=== PATIENT | female | born 1965 | race Caucasian/White ===

== ENCOUNTER 2024-07-02 09:00 | Outpatient (RCR) | payer OTHER, SELFPAY ==
--- NOTE | 2024-06-30 15:57 | PT.OIE ---
Current Diagnoses Unilateral primary osteoarthritis, left knee (06/30/24) Patellofemoral disorders, right knee (06/30/24) Patellofemoral disorders, left knee (06/30/24) Stiffness of right knee, not elsewhere classified (06/30/24) Stiffness of left knee, not elsewhere classified (06/30/24) Other specified disorders of muscle (06/30/24) Iliotibial band syndrome, left leg (06/30/24) Other lack of coordination (06/30/24) Weakness (06/30/24) Past Medical History (Last Updated 01/09/24 @ 17:06 by Monie Armstrong MD) Hypothyroidism Tinnitus Past Surgical History (Last Updated 01/09/24 @ 17:06 by Monie Armstrong MD) H/O gastric sleeve Visit Care Team Role Provider Type Monie Armstrong MD Family Provider Physician Primary Care Provider Specialty: Family Practice INFECTION PREVENTION PRACTITIONER Address: [address] [place] [address], [phone] Fax: Email: [email or web address] Jordan Camacho MD Attending Provider Non-Staff Referring Provider Specialty: Orthopedic Surgery Address: [facility] [place], [address] Email: Physical Therapy Initial Evaluation PT-OP-A Visit Information Start: 06/27/24 16:41 Freq: Status: Active Protocol: Document 06/30/24 10:44 NM (Rec: 06/30/24 11:33 NM [id number]) Out-Patient Physical Therapy Visit Information Visit Information Visit Type Initial Evaluation Visit Start Time 10:48 Visit Stop Time 11:30 Visit Number 1 Evaluation Information Evaluation Date 06/30/24 Precautions Precautions Hx L ACL repair, B knee OA PT-OP-B Current Condition Start: 06/27/24 16:41 Freq: Status: Active Protocol: Document 06/30/24 10:44 NM (Rec: 06/30/24 11:33 NM [id number]) Current Condition History of Current Condition Onset Date past several months Current Complaints pain History of Current Condition Pt presents with B knee pain, L>R. She has swelling in BLE. Pt just moved to area in October . She reports that she has been hiking multiple times per week (2-4x/wk). She has had L knee pain off and on. She had hx of L ACL repair, reports never really returned to normal (2012); injured when a kid jumped on pt. Pain is worse with hiking (1 mi if elevated, 1.5 mi if flat), bending knee, sitting for long periods, squatting, stairs. She started PT at a different place and has been doing exercises (s/l hip abd, prone hip ext, SLR, stretches- which has helped)- helped pain but not resolved. Reports weakness in her legs, tender ITB. She does reports that she felt a pop/tear on lateral knee when hiking this summer, sharp for several minutes but resolved with sitting; periodically has feelings feels like her tibia goes the outside. Prior Treatments and Tests Pt has had x rays in both knees, reports mild arthritis Treatment Goals Patient/Caregiver Goals wants to be able to transfer from floor to standing ( ultimate goal), transfer from chair PT-OP-C Subjective Start: 06/27/24 16:41 Freq: Status: Active Protocol: Document 06/30/24 10:44 NM (Rec: 06/30/24 11:33 NM [id number]) OP-PT Subjective Patient Comments Patient Comments Pt consents to participate in PT evaluation Patient Questionnaires Lower Extremity Functional Scale LEFS Score 60/80 OP-PT Pain Assessment Location R knee Pain Location Details below patella Intensity 4 Scale Used Numeric (0 - 10) Description Aching,Dull Pain Aggravating Factors Standing,Sitting,Walking,Stair Climbing,Bending Other Pain Aggravating Factors squatting; 2 mi limit Pain Alleviating Factors Rest Other Pain Alleviating Factors no medicatinos L knee Pain Location Details subpatellar, under patella Intensity 4 Scale Used Numeric (0 - 10) Description Aching,Dull Variations/Patterns sweling medial and below knee Pain Aggravating Factors Exercise,Standing,Sitting, Walking,Stair Climbing,Bending Other Pain Aggravating Factors squatting; 2 mi limit Pain Alleviating Factors Rest Other Pain Alleviating Factors no medications PT-OP-D Balance Start: 06/27/24 16:41 Freq: Status: Active Protocol: Document 06/30/24 10:44 NM (Rec: 06/30/24 11:33 NM [id number]) Balance Tests Single Limb Standing Single Limb- Right 10 sec Single Limb- Left 8 sec- inc instab; challenging PT-OP-E Functional Tests Start: 06/27/24 16:41 Freq: Status: Active Protocol: Document 06/30/24 10:44 NM (Rec: 06/30/24 11:33 NM [id number]) Functional Tests Squat Test Score 2 Comments crepitus; tendency for hip rot , WB R>L, less knee flex PT-OP-F Manual Assessment Start: 06/27/24 16:41 Freq: Status: Active Protocol: Document 06/30/24 10:44 NM (Rec: 06/30/24 11:33 NM [id number]) Manual Assessments Soft Tissue Assessment Soft Tissue Mobility Assessment L: tightness and tenderness along ITB, TFL, quad, ankle R: tightness, minimal tenderness along ITB Joint Mobility Assessment Joint Mobility Assessment Crepitus B. Limited patellar mobility L>R especially medial -lateral. L knee painful with passive overpressure into ext and flex, none on R knee. hyperextension of B knees. No ligamentous laxity noted Demos several + findings on beighton score Other Manual Assessments Other Manual Assessments Beighton scale: 5/8 PT-OP-G Mobility & Gait Start: 06/27/24 16:41 Freq: Status: Active Protocol: Document 06/30/24 10:44 NM (Rec: 06/30/24 12:55 NM [id number]) OP Mobility Evaluation Transfers Sit to Stand demos tendency to shift weight onto RLE when attempting to stand OP Gait Assessment Comments Gait Comments quick heel off, less dorsiflexion on L side than R, slightly antalgic w/ L stance Stair Climbing Evaluation Comments Stair Climbing Comments 4 step down: demos strong valgus B, L>R, in addition to unsteadiness at L ankle. Pain in knee w/ eccentric lowering PT-OP-J Posture/Palpation/Skin Start: 06/27/24 16:41 Freq: Status: Active Protocol: Document 06/30/24 10:44 NM (Rec: 06/30/24 11:33 NM [id number]) Palpation Assessment Location R knee Palpation Findings Edema,Tenderness Palpation Details Mild tenderness just inferior to patella, medial knee, near ITB insertion and along distal ITB L knee Palpation Findings Edema Palpation Details Tenderness noted along insertion of and distal ITB, lateral knee near fibular head and to tibia, none along joint line, inferior to patella Tightness along lateral hip and quad Skin Assessment Circumference Measurement R knee Location 44 cm at patella, 41 cm at mid calf L knee Location 46 cm at patella, 41 cm at mid calf Other Assessments Skin Assessment Comments 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 as non- pitting and stops just above foot/ankle joint; however, sock leaves indention in BLE PT-OP-K Range of Motion Start: 06/27/24 16:41 Freq: Status: Active Protocol: Document 06/30/24 10:44 NM (Rec: 06/30/24 11:33 NM [id number]) Hip Goniometric Range of Motion Hip Right Internal Rotation 25 External Rotation 25 Left Internal Rotation 20 External Rotation 25 Knee Goniometric Range of Motion Knee Right Flexion Active (degrees) 135 Hyper-Extension Active 4 Left Flexion Active (degrees) 125 Flexion Passive (degrees) 130 Hyper-Extension Active 1 Comments pain with full ext and flex, passive flex/ext PT-OP-L Special Tests Start: 06/27/24 16:41 Freq: Status: Active Protocol: Document 06/30/24 10:44 NM (Rec: 06/30/24 11:33 NM [id number]) Special Tests Knee Special Tests Ab's Test Test Results + Malone's Compression Test Results + Jerson Test Test Results - Posterior Sag Test Results - Shelia's Test Results - Varus Test Results - Valgus Test Results - PT-OP-M Strength Start: 06/27/24 16:41 Freq: Status: Active Protocol: Document 06/30/24 10:44 NM (Rec: 06/30/24 11:33 NM [id number]) Hip Strength Hip Manual Muscle Testing Right Flexion (L2) 4- Good- Extension (S1) 4- Good- Abduction 4- Good- External Rotation 4- Good- Internal Rotation 4- Good- Left Flexion (L2) 4 Good Extension (S1) 4- Good- Abduction 4 Good External Rotation 4- Good- Internal Rotation 4- Good- Knee Strength Knee Manual Muscle Testing Right Flexion (S2) 4 Good Extension (L3) 4 Good Left Flexion (S2) 4 Good Extension (L3) 4 Good Ankle/Foot Strength Ankle and Foot Manual Muscle Testing Right Dorsiflexion (L4) 4+ Good+ Plantarflexion (S1) 4+ Good+ Left Dorsiflexion (L4) 4+ Good+ Plantarflexion (S1) 4+ Good+ PT-OP-Q Treatments Start: 06/27/24 16:41 Freq: Status: Active Protocol: Document 06/30/24 10:44 NM (Rec: 06/30/24 11:33 NM [id number]) Therapeutic Exercises Supine Exercises bridge Side bilateral Resistance level 2 band Reps/Minutes 2x15 bilateral bridge, no pain with knee flex, maintains stability Comments trialed SL bridge but challenging in pt clothing; will assess next session Standing Exercises resisted stepping Standing Exercise Name lateral stepping Side bilateral Resistance level 2 band at thighs > ankles Reps/Minutes 3x15 ft Comments slight squat stance; cued for smaller step to limit trunk lean Self-Care/Home Management Treatment Education Patient Education Pain Management Other Education Educated briefly on lymphedema vs lipedema, strong recommendation for updated referral to lymphedema specialist following this episode of care PT-OP-T Assessment and Plan Start: 06/27/24 16:41 Freq: Status: Active Protocol: Document 06/30/24 10:44 NM (Rec: 06/30/24 11:33 NM [id number]) Physical Therapy Assessment Rehab Potential Rehabilitation Potential Good Evaluation Complexity Number of Personal Factors/Comorbidities 1-2 Number of Body Systems Impaired 1-2 Clinical Presentation at Evaluation Stable Impairments Impairments Activity Tolerance,Balance, Edema,Functional Activities, Functional Mobility,Gait, Integument,Pain,Posture,ROM, Sensation,Soft Tissue Mobility ,Strength,Transfers Other Concerns Age Related Concerns PMH: L ACL repair 2012, thyroid disorder, bariatric surgery several years ago Barriers to Rehabilitation Pt reports largely sedentary other than hikes, prior to moving to area reports that was very sedentary, not performing any other strengthening. Quit last PT for same condition as did not feel like was moving in the direction that I wanted it to . Goals Four Impairment LEFS 60/80, hiking 2-4x/wk Circulation Crew Leader Goal (LTG) Pt will report <4/10 knee pain with hiking at least 1 mile on any surface to demo improved activity tolerance LTG Duration 12 weeks Three Impairment squatting difficult and painful Short Term Goal (STG) Pt will be able to perform 100 % of STS transfers from standard chair with equal WB and knee pain <3/10 STG Duration 6 weeks [employer] Leader Goal (LTG) Pt will be able to perform at least 10 B squats with equal weightbearing, minimal compensations, and knee pain < 3/10 to perform transfers LTG Duration 12 weeks Two Impairment pain with stairs and hills Short Term Goal (STG) Pt will report <4/10 pain in B knees with eccentric step down with or without hand support and minimal compensations to demo improved control during descent STG Duration 8 weeks Mcfp Goal (LTG) Pt will report pain <3/10 in B knees during at least 12 stairs (1 flight) LTG Duration 12 weeks One Impairment not performing HEP Circulation Crew Leader Goal (LTG) Pt will report compliance with HEP at least 3x/wk in order to maximize progression with PT and maintain progress upon discharge LTG Duration 12 weeks Assessment Summary Assessment Pt is a 58 y.o. presenting with chronic B knee pain, L>R, worsening after an increase in activity. Pt has limitations in L knee flexion ROM, demos hyperextension on BLE. Pt has limitations in hip mobility and B hip and knee strength. She demos difficulty with STS transfers and squatting, with audible crepitus and deviations with hip rotation and less weightbearing on L side. Pt demos knee valgus with eccentric step down, unsteadiness at her ankle, and poor control. Pt has swelling in BLE, possibly lipedema vs lymphedema as non-pitting and terminates at her ankle; has hx of bariatric surgery and weight loss, which may impact her ability to improve ROM. Pt also has a hx of L ACL repair and sedentary lifestyle, which may impact rehab. PT educated pt on exam findings and plan of care. Pt would benefit from skilled PT for progressive flexibility and strengthening in order to improve symptom management during ADLs/IADLs, hiking, and stairs. Physical Therapy Plan Frequency and Duration Frequency of Treatment 1-2x/wk Duration of treatment (weeks) 12 Plan of Care Start Date 06/30/24 Plan of Care End Date 09/26/24 Therapeutic Interventions Therapeutic Interventions Balance Training,Gait Training ,Home Exercise Program,Joint Mobilizations,Manual Therapy, Neuromuscular Re-education, Orthotic/Prosthetic Management ,Patient/Caregiver Education, Self-Care/Home Management, Sensory Integration,Soft Tissue Mobilization,Taping, Therapeutic Activities, Therapeutic Exercises Modalities Cold Pack/Ice Massage,Electric Stimulation,Hot Packs, Ultrasound Next Visit Focus/Plan Next Note Type Treatment Note Next Visit Plan side steps, slider w/ band multi direction, squat retraining, quad stretch, calf stretch, TFL stretch, single leg bridge, TKE with band progress to stairs, leg press, squats at wall vs open chain manual: to hip/knee, ROM and STM
--- NOTE | 2024-07-02 09:49 | PT.OTN ---
Current Diagnoses Unilateral primary osteoarthritis, left knee (07/02/24) Patellofemoral disorders, right knee (07/02/24) Patellofemoral disorders, left knee (07/02/24) Stiffness of right knee, not elsewhere classified (07/02/24) Stiffness of left knee, not elsewhere classified (07/02/24) Other specified disorders of muscle (07/02/24) Iliotibial band syndrome, left leg (07/02/24) Other lack of coordination (07/02/24) Weakness (07/02/24) Physical Therapy Treatment Note PT-OP-A Visit Information Start: 06/27/24 16:41 Freq: Status: Active Protocol: Document 07/02/24 09:03 NM (Rec: 07/02/24 09:49 NM [id number]) Out-Patient Physical Therapy Visit Information Visit Information Visit Type Treatment Note Visit Start Time 09:03 Visit Stop Time 09:45 Visit Number 2 Evaluation Information Evaluation Date 06/30/24 Precautions Precautions Hx L ACL repair, B knee OA PT-OP-B Current Condition Start: 06/27/24 16:41 Freq: Status: Active Protocol: Document 06/30/24 10:44 NM (Rec: 06/30/24 11:33 NM [id number]) Current Condition History of Current Condition Onset Date past several months Current Complaints pain History of Current Condition Pt presents with B knee pain, L>R. She has swelling in BLE. Pt just moved to area in October . She reports that she has been hiking multiple times per week (2-4x/wk). She has had L knee pain off and on. She had hx of L ACL repair, reports never really returned to normal (2012); injured when a kid jumped on pt. Pain is worse with hiking (1 mi if elevated, 1.5 mi if flat), bending knee, sitting for long periods, squatting, stairs. She started PT at a different place and has been doing exercises (s/l hip abd, prone hip ext, SLR, stretches- which has helped)- helped pain but not resolved. Reports weakness in her legs, tender ITB. She does reports that she felt a pop/tear on lateral knee when hiking this summer, sharp for several minutes but resolved with sitting; periodically has feelings feels like her tibia goes the outside. Prior Treatments and Tests Pt has had x rays in both knees, reports mild arthritis Treatment Goals Patient/Caregiver Goals wants to be able to transfer from floor to standing ( ultimate goal), transfer from chair PT-OP-C Subjective Start: 06/27/24 16:41 Freq: Status: Active Protocol: Document 07/02/24 09:03 NM (Rec: 07/02/24 09:49 NM [id number]) OP-PT Subjective Patient Comments Patient Comments Pt reports no soreness following evaluation, no knee pain. PT-OP-D Balance Start: 06/27/24 16:41 Freq: Status: Active Protocol: Document 06/30/24 10:44 NM (Rec: 06/30/24 11:33 NM [id number]) Balance Tests Single Limb Standing Single Limb- Right 10 sec Single Limb- Left 8 sec- inc instab; challenging PT-OP-E Functional Tests Start: 06/27/24 16:41 Freq: Status: Active Protocol: Document 06/30/24 10:44 NM (Rec: 06/30/24 11:33 NM [id number]) Functional Tests Squat Test Score 2 Comments crepitus; tendency for hip rot , WB R>L, less knee flex PT-OP-F Manual Assessment Start: 06/27/24 16:41 Freq: Status: Active Protocol: Document 06/30/24 10:44 NM (Rec: 06/30/24 11:33 NM [id number]) Manual Assessments Soft Tissue Assessment Soft Tissue Mobility Assessment L: tightness and tenderness along ITB, TFL, quad, ankle R: tightness, minimal tenderness along ITB Joint Mobility Assessment Joint Mobility Assessment Crepitus B. Limited patellar mobility L>R especially medial -lateral. L knee painful with passive overpressure into ext and flex, none on R knee. hyperextension of B knees. No ligamentous laxity noted Demos several + findings on beighton score Other Manual Assessments Other Manual Assessments Beighton scale: 5/8 PT-OP-G Mobility & Gait Start: 06/27/24 16:41 Freq: Status: Active Protocol: Document 06/30/24 10:44 NM (Rec: 06/30/24 12:55 NM [id number]) OP Mobility Evaluation Transfers Sit to Stand demos tendency to shift weight onto RLE when attempting to stand OP Gait Assessment Comments Gait Comments quick heel off, less dorsiflexion on L side than R, slightly antalgic w/ L stance Stair Climbing Evaluation Comments Stair Climbing Comments 4 step down: demos strong valgus B, L>R, in addition to unsteadiness at L ankle. Pain in knee w/ eccentric lowering PT-OP-J Posture/Palpation/Skin Start: 06/27/24 16:41 Freq: Status: Active Protocol: Document 06/30/24 10:44 NM (Rec: 06/30/24 11:33 NM [id number]) Palpation Assessment Location R knee Palpation Findings Edema,Tenderness Palpation Details Mild tenderness just inferior to patella, medial knee, near ITB insertion and along distal ITB L knee Palpation Findings Edema Palpation Details Tenderness noted along insertion of and distal ITB, lateral knee near fibular head and to tibia, none along joint line, inferior to patella Tightness along lateral hip and quad Skin Assessment Circumference Measurement R knee Location 44 cm at patella, 41 cm at mid calf L knee Location 46 cm at patella, 41 cm at mid calf Other Assessments Skin Assessment Comments 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 as non- pitting and stops just above foot/ankle joint; however, sock leaves indention in BLE PT-OP-K Range of Motion Start: 06/27/24 16:41 Freq: Status: Active Protocol: Document 06/30/24 10:44 NM (Rec: 06/30/24 11:33 NM [id number]) Hip Goniometric Range of Motion Hip Right Internal Rotation 25 External Rotation 25 Left Internal Rotation 20 External Rotation 25 Knee Goniometric Range of Motion Knee Right Flexion Active (degrees) 135 Hyper-Extension Active 4 Left Flexion Active (degrees) 125 Flexion Passive (degrees) 130 Hyper-Extension Active 1 Comments pain with full ext and flex, passive flex/ext PT-OP-L Special Tests Start: 06/27/24 16:41 Freq: Status: Active Protocol: Document 06/30/24 10:44 NM (Rec: 06/30/24 11:33 NM [id number]) Special Tests Knee Special Tests Ab's Test Test Results + Malone's Compression Test Results + Jerson Test Test Results - Posterior Sag Test Results - Shelia's Test Results - Varus Test Results - Valgus Test Results - PT-OP-M Strength Start: 06/27/24 16:41 Freq: Status: Active Protocol: Document 06/30/24 10:44 NM (Rec: 06/30/24 11:33 NM [id number]) Hip Strength Hip Manual Muscle Testing Right Flexion (L2) 4- Good- Extension (S1) 4- Good- Abduction 4- Good- External Rotation 4- Good- Internal Rotation 4- Good- Left Flexion (L2) 4 Good Extension (S1) 4- Good- Abduction 4 Good External Rotation 4- Good- Internal Rotation 4- Good- Knee Strength Knee Manual Muscle Testing Right Flexion (S2) 4 Good Extension (L3) 4 Good Left Flexion (S2) 4 Good Extension (L3) 4 Good Ankle/Foot Strength Ankle and Foot Manual Muscle Testing Right Dorsiflexion (L4) 4+ Good+ Plantarflexion (S1) 4+ Good+ Left Dorsiflexion (L4) 4+ Good+ Plantarflexion (S1) 4+ Good+ PT-OP-Q Treatments Start: 06/27/24 16:41 Freq: Status: Active Protocol: Document 07/02/24 09:03 NM (Rec: 07/02/24 09:49 NM [id number]) Therapeutic Exercises Supine Exercises single leg bridge Side bilateral Equipment Used with ppt Reps/Minutes 2x10 ea Comments cueing for execution TFL stretch Supine Exercise Name with strap Side bilateral Reps/Minutes 60 Comments cued to loosen strap slightly for less calf lianne stretch Supine Exercise Name with slight knee flex/ext Side bilateral Reps/Minutes 60 Comments L side tighter Sidelying Exercises quad stretch Side bilateral Equipment Used with strap Reps/Minutes 60 ea Standing Exercises single leg heel raise Side bilateral Equipment Used hand support at wall Reps/Minutes 2x15 Comments L side more challenging wall squat Standing Exercise Name isometric hold Side bilateral Equipment Used small ROM to avoid knee pain Reps/Minutes 2x20 Comments increase in knee pain w/ reps calf stretch Standing Exercise Name 1. gastrocnemius, 2. soleus Side bilateral Equipment Used staggered stance at wall Reps/Minutes 60 ea Comments less stretch with soleus resisted stepping Standing Exercise Name lateral stepping Side bilateral Resistance level 2 band at toes Reps/Minutes 2x25 ft Comments more challenging; good feedback for glute activation Manual Therapy Treatment Consent Patient gave verbal consent for manual Yes treatment Soft Tissue Mobilization R knee Body Location quad, HS, TFL, ITB Mobilization Type Rolling,Strumming,Sustained Pressure Intensity/Depth Moderate Body Position Hooklying Comments Tenderness at calf L knee Body Location quad, HS, TFL, ITB, calf Mobilization Type Oscillations,Strumming, Sustained Pressure Intensity/Depth Moderate Body Position Hooklying Comments Tenderness along ITB and quad, TFL. Reduced with soft tissue mobilization Joint Mobilizations R knee Joint patellar Direction sup/inf/med/lat Grade III Body Position Supine Reps/Duration 2x30 ea Comments Monitored for pain L knee Joint patellar Direction sup/inf/med/lat Grade III Body Position Supine Reps/Duration 2x30 ea Comments Monitored for pain. Less mobility than R knee PT-OP-T Assessment and Plan Start: 06/27/24 16:41 Freq: Status: Active Protocol: Document 07/02/24 09:03 NM (Rec: 07/02/24 09:49 NM [id number]) Physical Therapy Assessment Goals Four Impairment LEFS 60/80, hiking 2-4x/wk [employer] Equipment [employer] Goal (LTG) Pt will report <4/10 knee pain with hiking at least 1 mile on any surface to demo improved activity tolerance LTG Duration 12 weeks Three Impairment squatting difficult and painful Short Term Goal (STG) Pt will be able to perform 100 % of STS transfers from standard chair with equal WB and knee pain <3/10 STG Duration 6 weeks [facility] Goal (LTG) Pt will be able to perform at least 10 B squats with equal weightbearing, minimal compensations, and knee pain < 3/10 to perform transfers LTG Duration 12 weeks Two Impairment pain with stairs and hills Short Term Goal (STG) Pt will report <4/10 pain in B knees with eccentric step down with or without hand support and minimal compensations to demo improved control during descent STG Duration 8 weeks [facility] Goal (LTG) Pt will report pain <3/10 in B knees during at least 12 stairs (1 flight) LTG Duration 12 weeks One Impairment not performing HEP Sports Equipment Racker Goal (LTG) Pt will report compliance with HEP at least 3x/wk in order to maximize progression with PT and maintain progress upon discharge LTG Duration 12 weeks Assessment Summary Assessment Pt tolerated session well, no pain during exercises or strengthening. Initiated global stretching program to improve flexibility above and below knee, specificially targeting TFL and hip flexors. More tightness on L side than R. Progressed to band at toes for resisted stepping, higher glute activation. Trialed single leg bridge. Minimal cues needed for form, L side more challenging. Less tolerance for wall squat isometric. Pt reports no pain at end of session in knees. She would conitnue to benefit from skilled PT for progressive strengthening and flexibility to improve symptom management and activity tolerance. Physical Therapy Plan Frequency and Duration Frequency of Treatment 1-2x/wk Duration of treatment (weeks) 12 Plan of Care Start Date 06/30/24 Plan of Care End Date 09/26/24 Therapeutic Interventions Therapeutic Interventions Balance Training,Gait Training ,Home Exercise Program,Joint Mobilizations,Manual Therapy, Neuromuscular Re-education, Orthotic/Prosthetic Management ,Patient/Caregiver Education, Self-Care/Home Management, Sensory Integration,Soft Tissue Mobilization,Taping, Therapeutic Activities, Therapeutic Exercises Modalities Cold Pack/Ice Massage,Electric Stimulation,Hot Packs, Ultrasound Next Visit Focus/Plan Next Note Type Treatment Note Next Visit Plan side steps, slider w/ band multi direction, squat retraining, quad stretch, calf stretch, TFL stretch, single leg bridge, TKE with band progress to stairs, leg press, squats at wall vs open chain manual: to hip/knee, ROM and STM
--- NOTE | 2024-08-01 10:32 | PT.OPDS ---
Current Diagnoses Unilateral primary osteoarthritis, left knee (07/02/24) Patellofemoral disorders, right knee (07/02/24) Patellofemoral disorders, left knee (07/02/24) Stiffness of right knee, not elsewhere classified (07/02/24) Stiffness of left knee, not elsewhere classified (07/02/24) Other specified disorders of muscle (07/02/24) Iliotibial band syndrome, left leg (07/02/24) Other lack of coordination (07/02/24) Weakness (07/02/24) Visit Care Team Role Provider Type Monie Armstrong MD Family Provider Physician Primary Care Provider Specialty: Family Practice SENIOR PROGRAMMER Address: [address] [place] [address], [id number] Fax: Email: [email or web address] Jordan Camacho MD Attending Provider Non-Staff Referring Provider Specialty: Orthopedic Surgery Address: [address] [place], [place] [address]deborah Loomis, [place], [address] Email: Visit Number Visit Number 2 Discharge Summary PT-OP-B Current Condition Start: 06/27/24 16:41 Freq: Status: Active Protocol: Document 06/30/24 10:44 NM (Rec: 06/30/24 11:33 NM [id number]) Current Condition History of Current Condition Onset Date past several months Current Complaints pain History of Current Condition Pt presents with B knee pain, L>R. She has swelling in BLE. Pt just moved to [facility] in October . She reports that she has been hiking multiple times per week (2-4x/wk). She has had L knee pain off and on. She had hx of L ACL repair, reports never really returned to normal (2012); injured when a kid jumped on pt. Pain is worse with hiking (1 mi if elevated, 1.5 mi if flat), bending knee, sitting for long periods, squatting, stairs. She started PT at a different place and has been doing exercises (s/l hip abd, prone hip ext, SLR, stretches- which has helped)- helped pain but not resolved. Reports weakness in her legs, tender ITB. She does reports that she felt a pop/tear on lateral knee when hiking this summer, sharp for several minutes but resolved with sitting; periodically has feelings feels like her tibia goes the outside. Prior Treatments and Tests Pt has had x rays in both knees, reports mild arthritis Treatment Goals Patient/Caregiver Goals wants to be able to transfer from floor to standing ( ultimate goal), transfer from chair PT-OP-C Subjective Start: 06/27/24 16:41 Freq: Status: Active Protocol: Document 07/02/24 09:03 NM (Rec: 07/02/24 09:49 NM [id number]) OP-PT Subjective Patient Comments Patient Comments Pt reports no soreness following evaluation, no knee pain. PT-OP-D Balance Start: 06/27/24 16:41 Freq: Status: Active Protocol: Document 06/30/24 10:44 NM (Rec: 06/30/24 11:33 NM [id number]) Balance Tests Single Limb Standing Single Limb- Right 10 sec Single Limb- Left 8 sec- inc instab; challenging PT-OP-E Functional Tests Start: 06/27/24 16:41 Freq: Status: Active Protocol: Document 06/30/24 10:44 NM (Rec: 06/30/24 11:33 NM [id number]) Functional Tests Squat Test Score 2 Comments crepitus; tendency for hip rot , WB R>L, less knee flex PT-OP-F Manual Assessment Start: 06/27/24 16:41 Freq: Status: Active Protocol: Document 06/30/24 10:44 NM (Rec: 06/30/24 11:33 NM [id number]) Manual Assessments Soft Tissue Assessment Soft Tissue Mobility Assessment L: tightness and tenderness along ITB, TFL, quad, ankle R: tightness, minimal tenderness along ITB Joint Mobility Assessment Joint Mobility Assessment Crepitus B. Limited patellar mobility L>R especially medial -lateral. L knee painful with passive overpressure into ext and flex, none on R knee. hyperextension of B knees. No ligamentous laxity noted Demos several + findings on beighton score Other Manual Assessments Other Manual Assessments Beighton scale: 5/8 PT-OP-G Mobility & Gait Start: 06/27/24 16:41 Freq: Status: Active Protocol: Document 06/30/24 10:44 NM (Rec: 06/30/24 12:55 NM [id number]) OP Mobility Evaluation Transfers Sit to Stand demos tendency to shift weight onto RLE when attempting to stand OP Gait Assessment Comments Gait Comments quick heel off, less dorsiflexion on L side than R, slightly antalgic w/ L stance Stair Climbing Evaluation Comments Stair Climbing Comments 4 step down: demos strong valgus B, L>R, in addition to unsteadiness at L ankle. Pain in knee w/ eccentric lowering PT-OP-J Posture/Palpation/Skin Start: 06/27/24 16:41 Freq: Status: Active Protocol: Document 06/30/24 10:44 NM (Rec: 06/30/24 11:33 NM [id number]) Palpation Assessment Location R knee Palpation Findings Edema,Tenderness Palpation Details Mild tenderness just inferior to patella, medial knee, near ITB insertion and along distal ITB L knee Palpation Findings Edema Palpation Details Tenderness noted along insertion of and distal ITB, lateral knee near fibular head and to tibia, none along joint line, inferior to patella Tightness along lateral hip and quad Skin Assessment Circumference Measurement R knee Location 44 cm at patella, 41 cm at mid calf L knee Location 46 cm at patella, 41 cm at mid calf Other Assessments Skin Assessment Comments 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 as non- pitting and stops just above foot/ankle joint; however, sock leaves indention in BLE PT-OP-K Range of Motion Start: 06/27/24 16:41 Freq: Status: Active Protocol: Document 06/30/24 10:44 NM (Rec: 06/30/24 11:33 NM [id number]) Hip Goniometric Range of Motion Hip Right Internal Rotation 25 External Rotation 25 Left Internal Rotation 20 External Rotation 25 Knee Goniometric Range of Motion Knee Right Flexion Active (degrees) 135 Hyper-Extension Active 4 Left Flexion Active (degrees) 125 Flexion Passive (degrees) 130 Hyper-Extension Active 1 Comments pain with full ext and flex, passive flex/ext PT-OP-L Special Tests Start: 06/27/24 16:41 Freq: Status: Active Protocol: Document 06/30/24 10:44 NM (Rec: 06/30/24 11:33 NM [id number]) Special Tests Knee Special Tests Ab's Test Test Results + Malone's Compression Test Results + Jerson Test Test Results - Posterior Sag Test Results - Shelia's Test Results - Varus Test Results - Valgus Test Results - PT-OP-M Strength Start: 06/27/24 16:41 Freq: Status: Active Protocol: Document 06/30/24 10:44 NM (Rec: 06/30/24 11:33 NM [id number]) Hip Strength Hip Manual Muscle Testing Right Flexion (L2) 4- Good- Extension (S1) 4- Good- Abduction 4- Good- External Rotation 4- Good- Internal Rotation 4- Good- Left Flexion (L2) 4 Good Extension (S1) 4- Good- Abduction 4 Good External Rotation 4- Good- Internal Rotation 4- Good- Knee Strength Knee Manual Muscle Testing Right Flexion (S2) 4 Good Extension (L3) 4 Good Left Flexion (S2) 4 Good Extension (L3) 4 Good Ankle/Foot Strength Ankle and Foot Manual Muscle Testing Right Dorsiflexion (L4) 4+ Good+ Plantarflexion (S1) 4+ Good+ Left Dorsiflexion (L4) 4+ Good+ Plantarflexion (S1) 4+ Good+ PT-OP-T Assessment and Plan Start: 06/27/24 16:41 Freq: Status: Active Protocol: Document 08/01/24 10:29 NM (Rec: 08/01/24 10:32 NM [id number]) Physical Therapy Assessment Goals Four Impairment LEFS 60/80, hiking 2-4x/wk Prob[employer] Goal (LTG) Pt will report <4/10 knee pain with hiking at least 1 mile on any surface to demo improved activity tolerance LTG Duration 12 weeks Three Impairment squatting difficult and painful Short Term Goal (STG) Pt will be able to perform 100 % of STS transfers from standard chair with equal WB and knee pain <3/10 STG Duration 6 weeks [employer] Goal (LTG) Pt will be able to perform at least 10 B squats with equal weightbearing, minimal compensations, and knee pain < 3/10 to perform transfers LTG Duration 12 weeks Two Impairment pain with stairs and hills Short Term Goal (STG) Pt will report <4/10 pain in B knees with eccentric step down with or without hand support and minimal compensations to demo improved control during descent STG Duration 8 weeks [facility] Goal (LTG) Pt will report pain <3/10 in B knees during at least 12 stairs (1 flight) LTG Duration 12 weeks One Impairment not performing HEP Probate Judge Goal (LTG) Pt will report compliance with HEP at least 3x/wk in order to maximize progression with PT and maintain progress upon discharge LTG Duration 12 weeks Assessment Summary Assessment Pt has been seen x1 following evaluation in June 2024 for knee pain. Pt canceled all other appt on 07/28. No progress made toward goals Physical Therapy Plan Frequency and Duration Frequency of Treatment 1-2x/wk Duration of treatment (weeks) 12 Plan of Care Start Date 06/30/24 Plan of Care End Date 09/26/24 Therapeutic Interventions Therapeutic Interventions Balance Training,Gait Training ,Home Exercise Program,Joint Mobilizations,Manual Therapy, Neuromuscular Re-education, Orthotic/Prosthetic Management ,Patient/Caregiver Education, Self-Care/Home Management, Sensory Integration,Soft Tissue Mobilization,Taping, Therapeutic Activities, Therapeutic Exercises Modalities Cold Pack/Ice Massage,Electric Stimulation,Hot Packs, Ultrasound Discharge Physical Therapy Discharge Reasons Patient Request Discharge Comments Pt called to cancel remaining appt on 07/28, stating I have not been doing my exercises and until I can take this serious don't think I should come in. Pt requests to cancel all remaining appt and states she would like to be discharged from PT. Pt will be discharged per request and will need a new referral to return Next Visit Focus/Plan Next Note Type Discharge Summary Next Visit Plan discharge from PT
== END 2024-08-04 14:53 | disposition home or self-care (01) ==
LOC: PHYS 09:00
PROVIDERS: Family Provider Family Medicine; PCP Family Medicine; Referring Provider Orthopaedic Surgery; Visit Provider Orthopaedic Surgery
DX: M22.2X1 Patellofemoral disorders, right knee (principal); M22.2X2 Patellofemoral disorders, left knee; M62.89 Other specified disorders of muscle; M76.32 Iliotibial band syndrome, left leg; M17.12 Unilateral primary osteoarthritis, left knee; M25.662 Stiffness of left knee, not elsewhere classified; M25.661 Stiffness of right knee, not elsewhere classified; R53.1 Weakness; R27.8 Other lack of coordination
CPT/HCPCS: 97110; 97140; 97161

== ENCOUNTER 2025-01-29 07:30 | Outpatient (RCR) | payer OTHER, SELFPAY ==
--- NOTE | 2024-12-29 08:10 | PT.OIE ---
Current Diagnoses Lymphedema, not elsewhere classified (12/29/24) Past Medical History (Last Updated 01/09/24 @ 17:06 by Monie Armstrong MD) Hypothyroidism Tinnitus Past Surgical History (Last Updated 01/09/24 @ 17:06 by Monie Armstrong MD) H/O gastric sleeve Visit Care Team Role Provider Type Monie Armstrong MD Family Provider Physician Specialty: Family Practice [employer] Address: [facility] [place], [address] Fax: Email: [email or web address] Rona Rosario MD Attending Provider Non-Staff Primary Care Provider Referring Provider Specialty: [facility] Practice Address: [address], [place], [address] Email: Physical Therapy Initial Evaluation PT-OP-A Visit Information Start: 12/29/24 08:15 Freq: Status: Active Protocol: Document 12/29/24 14:34 SAK (Rec: 12/29/24 15:10 SAK Laptop) Out-Patient Physical Therapy Visit Information Visit Information Visit Type Initial Evaluation Visit Start Time 14:34 Visit Stop Time 15:50 Visit Number 1 Number of CERTIFIED TECHNICIAN Visits 0 Evaluation Information Evaluation Date 12/29/24 PT-OP-B Current Condition Start: 12/29/24 08:15 Freq: Status: Active Protocol: Document 12/29/24 14:34 SAK (Rec: 12/29/24 15:10 SAK Laptop) Current Condition History of Current Condition Onset Date lifetime Current Complaints swelling bilateral lower extremies History of Current States has always had larger legs, got really bad with Condition menopause and on left leg worsened after knee surgery. Also upper arms significantly larger than lower arms. Bruises easily, has hypermobility of joints UE's and LE's. Feet and hands not affected with edema. Left knee surgery ACL and meniscal surgery 12 years ago, knee has caused her problems ever since. Feels whole area gets easily irritated. Was doing PT for knee last in July of this year. Goes to [employer] class. Has not worn any compression garments. Was diagnosed with lymphedema but feels she may also have lipedema. Has a vibration plate. Elevation doesn't help with edema. Worsens over the course of the day. Prior Treatments and none Tests Treatment Goals Patient/Caregiver decrease edema, be able to self manage Goals Personal Factors Other Personal busy and stressful work schedule Factors That May Effect Therapy/ Recovery PT-OP-C Subjective Start: 12/29/24 08:15 Freq: Status: Active Protocol: Document 12/29/24 14:34 [facility] (Rec: 12/29/24 17:01 [facility] Laptop) Patient Questionnaires Lymphedema Life Impact Score Lymphedema Score 51 OP-PT Pain Assessment Pain Assessment Grid Paper Pain Yes Assessment Grid Completed Location john paul knees Intensity 5 PT-OP-G Mobility & Gait Start: 12/29/24 08:15 Freq: Status: Active Protocol: Document 12/29/24 14:34 SAK (Rec: 12/29/24 17:01 [facility] Laptop) OP Gait Assessment Gait Gait Assistance Independent Required: Assistive Devices Assistive Device None PT-OP-J Posture/Palpation/Skin Start: 12/29/24 08:15 Freq: Status: Active Protocol: Document 12/29/24 14:34 [facility] (Rec: 12/29/24 17:01 [facility] Laptop) Palpation Assessment Location john paul LE's Palpation Findings Edema,Tenderness Palpation Details multiple areas of nodularity throughout proximal LE's Skin Assessment Edema Assessment john paul LE's Edema Type Non-Pitting Edema Appearance Dimpled,Puffy Comments from ankles proximal including hips and buttocks Other Assessments Skin Assessment dimpling appearance Comments PT-OP-K Range of Motion Start: 12/29/24 08:15 Freq: Status: Active Protocol: Document 12/29/24 14:34 [facility] (Rec: 12/29/24 17:01 [facility] Laptop) Hip Goniometric Range of Motion Hip john paul Hip ROM WFL Yes Knee Goniometric Range of Motion Knee john paul Knee ROM WFL Yes Ankle and Foot Goniometric Range of Motion Ankle and Foot john paul Ankle/Foot ROM WFL Yes PT-OP-N Lymphedema Start: 12/29/24 08:15 Freq: Status: Active Protocol: Document 12/29/24 14:34 SAK (Rec: 12/29/24 15:10 [facility] Laptop) Lymphedema Measurements Lower Extremity Circumference Measurements Right Affected MT Heads 22.7 cm Mid-foot 21.8 cm Medial Malleolus 25.7 cm 10 cm From Medial 33.8 cm Malleolus 20 cm From Medial 43.2 cm Malleolus 30 cm From Medial 46 cm Malleolus 40 cm From Medial 47.8 cm Malleolus 50 cm From Medial 55 cm Malleolus 60 cm From Medial 65.8 cm Malleolus 70 cm From Medial 73.5 cm Malleolus Knee Joint 46.8 cm Left Affected MT Heads 22.7 cm Mid-foot 22.3 cm Medial Malleolus 23.4 cm 10 cm From Medial 33.9 cm Malleolus 20 cm From Medial 43 cm Malleolus 30 cm From Medial 45.2 cm Malleolus 40 cm From Medial 48 cm Malleolus 50 cm From Medial 54.8 cm Malleolus 60 cm From Medial 65.7 cm Malleolus 70 cm From Medial 71.3 cm Malleolus Knee Joint 47 cm Comments Lymphedema Comments symptoms consistent with lipedema with aspects of lymphedema PT-OP-Q Treatments Start: 12/29/24 08:15 Freq: Status: Active Protocol: Document 12/29/24 14:34 [facility] (Rec: 12/29/24 17:01 [facility] Laptop) Lymphedema Treatment Manual Lymphatic Drainage Location initiated education, given online educational source Lymphedema Wrapping Body Location john paul LE's ankles to upper thighs Materials Tricofix size G, Artiflex (4), Comprilan (6,8,10x2,12) Sequential Lymphedema Exercises Comments general instruction importance of ther ex including deep breathing Compression Garment Assessment Compression Garment Patient has no compression; given information on Assessment Details compression garments Patient Education Lymphedema Pathology instructed Lymphedema issued written information Prevention Lymphedema issued written information Precautions Compression Garments discussed and given information Self Manual initiated education Lymphatic Drainage Sequential ended session 5 min recumbant elliptical to facilitate Lymphedema Exercises lymphatic flow PT-OP-T Assessment and Plan Start: 12/29/24 08:15 Freq: Status: Active Protocol: Document 12/29/24 14:34 [facility] (Rec: 12/29/24 17:01 [facility] Laptop) Physical Therapy Assessment Rehab Potential Rehabilitation Good Potential Evaluation Complexity Number of Personal 1-2 Factors/ Comorbidities Number of Body 3 Systems Impaired Clinical Evolving Presentation at Evaluation Impairments Impairments Activity Tolerance,Edema,Pain Goals Three Impairment low activity tolerance due to knee pain Assisted Goal (LTG) Patient to report improvement in activity tolerance to include able to walk at least 1 mile without an increase in knee pain LTG Duration 03/31/25 Two Impairment lymphedema life impact scale score 51% Short Term Goal (STG Decrease Lymphedema Life Impact Scale to no greater ) than 35% as measure of improved activity tolerance and quality of life. STG Duration 02/13/25 Assisted Goal (LTG) Decrease Lymphedema Life Impact Scale to no greater than 25% as measure of improved activity tolerance and quality of life. LTG Duration 03/31/25 One Impairment Lipo-lymphedema john paul LE's and UE's Short Term Goal (STG Patient will be instructed in all aspects of lipo- ) lymphedema self-care to include skin care, elevation, self-massage, self-bandaging/compression options, and lipo-lymphedema exercises. STG Duration 02/13/25 Stock Associate Goal (LTG) Decrease patient?s lipo-lymphedema to a stable level ( no increase or decrease greater than 1 cm over the course of 1 week), patient to be independent with all aspects of self-care for lipo-lymphedema, and will obtain appropriate compression garments for lipo- lymphedema management in the home. LTG Duration 03/31/25 Assessment Summary Assessment Patient presents to PT with signs and symptoms consistent with lipo-lymphedema affecting john paul LE's, hips, and buttocks, as well as proximal UE's. She also has a history of left knee surgery and has bilateral knee pain 5/10 on pain scale which is impacted highly by lipo-lymphedema with edema worsening after knee surgery 12 years ago, and reporting the size of her legs increased after menopause as well. Other symptoms consistent with the lipedema component of her dysfunction is symmetrical disproportionate distribution of adipose tissue without feet or hands affected, easy bruising, nodules within her tissue, hypermobility of her joints. She has not received any treatment in the past, does not have any compression garments. Feel she would benefit highly from PT for Complete Decongestive Therapy to include elevation, skin care, therapeutic exercises, manual lymphatic drainage, and compression. POC was discussed and patient was in agreement. Physical Therapy Plan Frequency and Duration Frequency of 20 Treatment Duration of 12 treatment (weeks) Plan of Care Start 12/29/24 Date Plan of Care End 03/31/25 Date Therapeutic Interventions Therapeutic Home Exercise Program,Lymphedema Management,Manual Interventions Therapy,Patient/Caregiver Education,Self-Care/Home Management,Soft Tissue Mobilization,Taping,Therapeutic Activities,Therapeutic Exercises Modalities Vasopneumatic Devices Other Referrals/Consults Referrals/Consults Recommend patient see a vascular surgeon for evaluation Recommended and to confirm a lipedema diagnosis. Also recomend she consider seeing lipedema surgeon for consult. Next Visit Focus/Plan Next Note Type Treatment Note Next Visit Plan Continue Complete Decongestive therapy.
--- NOTE | 2024-12-29 16:20 | PT.OPPOC ---
Physical, Occupational & Speech Therapy At [facility] Current Diagnoses Lymphedema, not elsewhere classified (12/29/24) Visit Care Team Role Provider Type Monie Armstrong MD Family Provider Physician Specialty: Family Practice ETCHER ENAMELING Address: [address] [place], [address] Fax: Email: [email or web address] Rona Rosario MD Attending Provider Non-Staff Primary Care Provider Referring Provider Specialty: Family Practice Address: [address], [place], [address] Email: Plan Of Care PT-OP-B Current Condition Start: 12/29/24 08:15 Freq: Status: Active Protocol: Document 12/29/24 14:34 SAK (Rec: 12/29/24 15:10 SAK Laptop) Current Condition History of Current Condition Onset Date lifetime Current Complaints swelling bilateral lower extremies History of Current States has always had larger legs, got really bad with Condition menopause and on left leg worsened after knee surgery. Also upper arms significantly larger than lower arms. Bruises easily, has hypermobility of joints UE's and LE's. Feet and hands not affected with edema. Left knee surgery ACL and meniscal surgery 12 years ago, knee has caused her problems ever since. Feels whole area gets easily irritated. Was doing PT for knee last in July of this year. Goes to [employer] class. Has not worn any compression garments. Was diagnosed with lymphedema but feels she may also have lipedema. Has a vibration plate. Elevation doesn't help with edema. Worsens over the course of the day. Prior Treatments and none Tests Treatment Goals Patient/Caregiver decrease edema, be able to self manage Goals Personal Factors Other Personal busy and stressful work schedule Factors That May Effect Therapy/ Recovery PT-OP-T Assessment and Plan Start: 12/29/24 08:15 Freq: Status: Active Protocol: Document 12/29/24 14:34 SAK (Rec: 12/29/24 17:01 SAK Laptop) Physical Therapy Assessment Rehab Potential Rehabilitation Good Potential Evaluation Complexity Number of Personal 1-2 Factors/ Comorbidities Number of Body 3 Systems Impaired Clinical Evolving Presentation at Evaluation Impairments Impairments Activity Tolerance,Edema,Pain Goals Three Impairment low activity tolerance due to knee pain Custodial Goal (LTG) Patient to report improvement in activity tolerance to include able to walk at least 1 mile without an increase in knee pain LTG Duration 03/31/25 Two Impairment lymphedema life impact scale score 51% Short Term Goal (STG Decrease Lymphedema Life Impact Scale to no greater ) than 35% as measure of improved activity tolerance and quality of life. STG Duration 02/13/25 Custodial Goal (LTG) Decrease Lymphedema Life Impact Scale to no greater than 25% as measure of improved activity tolerance and quality of life. LTG Duration 03/31/25 One Impairment Lipo-lymphedema john paul LE's and UE's Short Term Goal (STG Patient will be instructed in all aspects of lipo- ) lymphedema self-care to include skin care, elevation, self-massage, self-bandaging/compression options, and lipo-lymphedema exercises. STG Duration 02/13/25 Whistle Punk Goal (LTG) Decrease patient?s lipo-lymphedema to a stable level ( no increase or decrease greater than 1 cm over the course of 1 week), patient to be independent with all aspects of self-care for lipo-lymphedema, and will obtain appropriate compression garments for lipo- lymphedema management in the home. LTG Duration 03/31/25 Assessment Summary Assessment Patient presents to PT with signs and symptoms consistent with lipo-lymphedema affecting john paul LE's, hips, and buttocks, as well as proximal UE's. She also has a history of left knee surgery and has bilateral knee pain 5/10 on pain scale which is impacted highly by lipo-lymphedema with edema worsening after knee surgery 12 years ago, and reporting the size of her legs increased after menopause as well. Other symptoms consistent with the lipedema component of her dysfunction is symmetrical disproportionate distribution of adipose tissue without feet or hands affected, easy bruising, nodules within her tissue, hypermobility of her joints. She has not received any treatment in the past, does not have any compression garments. Feel she would benefit highly from PT for Complete Decongestive Therapy to include elevation, skin care, therapeutic exercises, manual lymphatic drainage, and compression. POC was discussed and patient was in agreement. Physical Therapy Plan Frequency and Duration Frequency of 20 Treatment Duration of 12 treatment (weeks) Plan of Care Start 12/29/24 Date Plan of Care End 03/31/25 Date Therapeutic Interventions Therapeutic Home Exercise Program,Lymphedema Management,Manual Interventions Therapy,Patient/Caregiver Education,Self-Care/Home Management,Soft Tissue Mobilization,Taping,Therapeutic Activities,Therapeutic Exercises Modalities Vasopneumatic Devices Other Referrals/Consults Referrals/Consults Recommend patient see a vascular surgeon for evaluation Recommended and to confirm a lipedema diagnosis. Also recomend she consider seeing lipedema surgeon for consult. Next Visit Focus/Plan Next Note Type Treatment Note Next Visit Plan Continue Complete Decongestive therapy. Plan of Care Dates Plan of Care Start Date 12/29/24 Plan of Care End Date 03/31/25 Electronically Signed by: Caitlin Bain, PT 12/30/24 0812 If you are in agreement with this Plan of Care, please return a signed and dated copy. I have reviewed this Plan of Care and certify that the skilled therapy services above are required to meet the patient?s needs. Physician Signature Date Printed Name and Credentials Clinical Instructor Signature Printed Name and Credentials
--- NOTE | 2025-01-01 15:47 | PT.OTN ---
Current Diagnoses Lymphedema, not elsewhere classified (01/01/25) Physical Therapy Treatment Note PT-OP-A Visit Information Start: 12/29/24 08:15 Freq: Status: Active Protocol: Document 01/01/25 14:30 SAK (Rec: 01/01/25 15:47 [facility] Laptop) Out-Patient Physical Therapy Visit Information Visit Information Visit Type Treatment Note Visit Start Time 14:30 Visit Number 2 Evaluation Information Evaluation Date 12/29/24 PT-OP-B Current Condition Start: 12/29/24 08:15 Freq: Status: Active Protocol: Document 01/01/25 14:30 SAK (Rec: 01/01/25 15:47 [facility] Laptop) Current Condition History of Current Condition Onset Date lifetime Current Complaints swelling bilateral lower extremies History of Current States has always had larger legs, got really bad with Condition menopause and on left leg worsened after knee surgery. Also upper arms significantly larger than lower arms. Bruises easily, has hypermobility of joints UE's and LE's. Feet and hands not affected with edema. Left knee surgery ACL and meniscal surgery 12 years ago, knee has caused her problems ever since. Feels whole area gets easily irritated. Was doing PT for knee last in July of this year. Goes to [employer] class. Has not worn any compression garments. Was diagnosed with lymphedema but feels she may also have lipedema. Has a vibration plate. Elevation doesn't help with edema. Worsens over the course of the day. Prior Treatments and none Tests PT-OP-C Subjective Start: 12/29/24 08:15 Freq: Status: Active Protocol: Document 01/01/25 14:30 SAK (Rec: 01/01/25 15:47 [facility] Laptop) OP-PT Subjective Patient Comments Patient Comments Tried wearing compression bandaging abut wouldn't stay up. Used Flowpresso machine at friend's house; sequential pneumatic pump x 40 min. Went bike riding and played pickle ball after and have no pain. Has mile pain today but relatively minimal. Bought leggings 20-30 mmHg. Made an appt with [facility]. PT-OP-G Mobility & Gait Start: 12/29/24 08:15 Freq: Status: Active Protocol: Document 12/29/24 14:34 SAK (Rec: 12/29/24 17:01 SAK Laptop) OP Gait Assessment Gait Gait Assistance Independent Required: Assistive Devices Assistive Device None PT-OP-J Posture/Palpation/Skin Start: 12/29/24 08:15 Freq: Status: Active Protocol: Document 12/29/24 14:34 SAK (Rec: 12/29/24 17:01 [facility] Laptop) Palpation Assessment Location john paul LE's Palpation Findings Edema,Tenderness Palpation Details multiple areas of nodularity throughout proximal LE's Skin Assessment Edema Assessment john paul LE's Edema Type Non-Pitting Edema Appearance Dimpled,Puffy Comments from ankles proximal including hips and buttocks Other Assessments Skin Assessment dimpling appearance Comments PT-OP-K Range of Motion Start: 12/29/24 08:15 Freq: Status: Active Protocol: Document 12/29/24 14:34 [facility] Hip Goniometric Range of Motion Hip john paul Hip ROM WFL Yes Knee Goniometric Range of Motion Knee john paul Knee ROM WFL Yes Ankle and Foot Goniometric Range of Motion Ankle and Foot john paul Ankle/Foot ROM WFL Yes PT-OP-N Lymphedema Start: 12/29/24 08:15 Freq: Status: Active Protocol: Document 01/01/25 14:30 SAK (Rec: 01/01/25 15:47 [facility]) Lymphedema Measurements Lower Extremity Circumference Measurements Right Affected MT Heads 22.7 cm Mid-foot 22.2 cm Medial Malleolus 22.7 cm 10 cm From Medial 34.6 cm Malleolus 20 cm From Medial 43.4 cm Malleolus 30 cm From Medial 46.4 cm Malleolus 40 cm From Medial 46.4 cm Malleolus 50 cm From Medial 52.6 cm Malleolus 60 cm From Medial 64.2 cm Malleolus 70 cm From Medial 71.5 cm Malleolus Knee Joint 46.4 cm - widest hips 112.2 waist: 81 Left Affected MT Heads 21.7 cm Mid-foot 21.8 cm Medial Malleolus 22.7 cm 10 cm From Medial 31.5 cm Malleolus 20 cm From Medial 41.4 cm Malleolus 30 cm From Medial 44.5 cm Malleolus 40 cm From Medial 43.6 cm Malleolus 50 cm From Medial 49.8 cm Malleolus 60 cm From Medial 57.5 cm Malleolus 70 cm From Medial 71.5 cm Malleolus PT-OP-Q Treatments Start: 12/29/24 08:15 Freq: Status: Active Protocol: Document 01/01/25 14:30 SAK (Rec: 01/01/25 15:47 SAK Laptop) Lymphedema Treatment Manual Lymphatic Drainage Location for bilateral LE lipolymphedema Duration 35 Lymphedema Wrapping Other Trial Bioflect XL compression tights issued for trial vs bandaging; patient instructed in correct donning and distribution of fabric to prevent tourniquet effect Sequential Lymphedema Exercises Comments reviewed deep breathing, need for frequent breaks (ie standing, walking, moving leg joints) frequently during her work day due to sedentary job. No other eercise instruction due to patient highly involved in athletic activities Compression Garment Assessment Compression Garment Good fit xl Bioflect trial garment Assessment Details Patient Education Compression Garments as above Self Manual instructed during MLD on technique, has info for video Lymphatic Drainage review for home PT-OP-T Assessment and Plan Start: 12/29/24 08:15 Freq: Status: Active Protocol: Document 01/01/25 14:30 SAK (Rec: 01/01/25 15:47 SAK Laptop) Physical Therapy Assessment Goals Three Impairment low activity tolerance due to knee pain [employer] Specialist Goal (LTG) Patient to report improvement in activity tolerance to include able to walk at least 1 mile without an increase in knee pain LTG Duration 03/31/25 Two Impairment lymphedema life impact scale score 51% Short Term Goal (STG Decrease Lymphedema Life Impact Scale to no greater ) than 35% as measure of improved activity tolerance and quality of life. STG Duration 02/13/25 Apartment Leasing Specialist Goal (LTG) Decrease Lymphedema Life Impact Scale to no greater than 25% as measure of improved activity tolerance and quality of life. LTG Duration 03/31/25 One Impairment Lipo-lymphedema john paul LE's and UE's Short Term Goal (STG Patient will be instructed in all aspects of lipo- ) lymphedema self-care to include skin care, elevation, self-massage, self-bandaging/compression options, and lipo-lymphedema exercises. STG Duration 02/13/25 Apartment Leasing Specialist Goal (LTG) Decrease patient?s lipo-lymphedema to a stable level ( no increase or decrease greater than 1 cm over the course of 1 week), patient to be independent with all aspects of self-care for lipo-lymphedema, and will obtain appropriate compression garments for lipo- lymphedema management in the home. LTG Duration 03/31/25 Assessment Summary Assessment Patient demonstrated overall reducation in the bilateral LE's circumference measurements that may be attributed to a pneumatic pump she tried. Pt provided a set of bioflect compression garments to trial before buying a pair of her own; she has ordered a couple pair of compression tights including Juzo 20-30 mm Hg. Poor tolerance for bandaging due to active lifestyle, bandages sliding down. She has made an appt with [facility] for vascular evaluation. Significant decrease in pain also noted after use of pump as above. Patient interested in obtaining sequential pneumatic pump to help with self management of her lipolymphedema. Physical Therapy Plan Frequency and Duration Frequency of 20 Treatment Duration of 12 treatment (weeks) Plan of Care Start 12/29/24 Date Plan of Care End 03/31/25 Date Therapeutic Interventions Therapeutic Home Exercise Program,Lymphedema Management,Manual Interventions Therapy,Patient/Caregiver Education,Self-Care/Home Management,Soft Tissue Mobilization,Taping,Therapeutic Activities,Therapeutic Exercises Modalities Vasopneumatic Devices Other Referrals/Consults Referrals/Consults Evaluate response to trial Bioflect garment and/or Recommended ordered garments. Circumferential measurements, continue CDT. Request consult with [facility] for trial Flexitouch pump. Next Visit Focus/Plan Next Note Type Treatment Note Next Visit Plan Continue Complete Decongestive therapy.
--- NOTE | 2025-01-05 15:59 | PT.OTN ---
Current Diagnoses Lymphedema, not elsewhere classified (01/05/25) Physical Therapy Treatment Note PT-OP-A Visit Information Start: 12/29/24 08:15 Freq: Status: Active Protocol: Document 01/05/25 14:32 SAK (Rec: 01/05/25 14:59 SAK Laptop) Out-Patient Physical Therapy Visit Information Visit Information Visit Type Treatment Note Visit Start Time 14:30 Visit Stop Time 15:10 Visit Number 3 Evaluation Information Evaluation Date 12/29/24 PT-OP-B Current Condition Start: 12/29/24 08:15 Freq: Status: Active Protocol: Document 01/05/25 14:32 SAK (Rec: 01/05/25 14:59 SAK Laptop) Current Condition History of Current Condition Onset Date lifetime Current Complaints swelling bilateral lower extremies History of Current States has always had larger legs, got really bad with Condition menopause and on left leg worsened after knee surgery. Also upper arms significantly larger than lower arms. Bruises easily, has hypermobility of joints UE's and LE's. Feet and hands not affected with edema. Left knee surgery ACL and meniscal surgery 12 years ago, knee has caused her problems ever since. Feels whole area gets easily irritated. Was doing PT for knee last in July of this year. Goes to [employer] class. Has not worn any compression garments. Was diagnosed with lymphedema but feels she may also have lipedema. Has a vibration plate. Elevation doesn't help with edema. Worsens over the course of the day. Prior Treatments and none Tests PT-OP-C Subjective Start: 12/29/24 08:15 Freq: Status: Active Protocol: Document 01/05/25 14:32 SAK (Rec: 01/05/25 14:59 SAK Laptop) OP-PT Subjective Patient Comments Patient Comments Has been wearing Bioflect most of the time. After playing pickleball reports increased swelling (didn't wear compression during pickleball. Pt. reprts remembering that she had liposuction on her saddlebag area when she was 19 years old. PT-OP-G Mobility & Gait Start: 12/29/24 08:15 Freq: Status: Active Protocol: Document 12/29/24 14:34 SAK (Rec: 12/29/24 17:01 SAK Laptop) OP Gait Assessment Gait Gait Assistance Independent Required: Assistive Devices Assistive Device None PT-OP-J Posture/Palpation/Skin Start: 12/29/24 08:15 Freq: Status: Active Protocol: Document 12/29/24 14:34 SAK (Rec: 12/29/24 17:01 SAK Laptop) Palpation Assessment Location john paul LE's Palpation Findings Edema,Tenderness Palpation Details multiple areas of nodularity throughout proximal LE's Skin Assessment Edema Assessment john paul LE's Edema Type Non-Pitting Edema Appearance Dimpled,Puffy Comments from ankles proximal including hips and buttocks Other Assessments Skin Assessment dimpling appearance Comments PT-OP-K Range of Motion Start: 12/29/24 08:15 Freq: Status: Active Protocol: Document 12/29/24 14:34 SAK (Rec: 12/29/24 17:01 SAK Laptop) Hip Goniometric Range of Motion Hip john paul Hip ROM WFL Yes Knee Goniometric Range of Motion Knee john paul Knee ROM WFL Yes Ankle and Foot Goniometric Range of Motion Ankle and Foot john paul Ankle/Foot ROM WFL Yes PT-OP-N Lymphedema Start: 12/29/24 08:15 Freq: Status: Active Protocol: Document 01/05/25 14:32 SAK (Rec: 01/05/25 14:59 SAK Laptop) Lymphedema Measurements Lower Extremity Circumference Measurements Right Affected MT Heads 22.6 cm Mid-foot 21.8 cm Medial Malleolus 23 cm 10 cm From Medial 34 cm Malleolus 20 cm From Medial 42.8 cm Malleolus 30 cm From Medial 44.3 cm Malleolus 40 cm From Medial 45 cm Malleolus 50 cm From Medial 52 cm Malleolus 60 cm From Medial 63.5 cm Malleolus 70 cm From Medial 75 cm Malleolus Knee Joint 45 cm Left Affected MT Heads 22.7 cm Mid-foot 21.9 cm Medial Malleolus 23.1 cm 10 cm From Medial 34 cm Malleolus 20 cm From Medial 41.5 cm Malleolus 30 cm From Medial 44 cm Malleolus 40 cm From Medial 46 cm Malleolus 50 cm From Medial 49.8 cm Malleolus 60 cm From Medial 60 cm Malleolus 70 cm From Medial 73 cm Malleolus Knee Joint 46 cm PT-OP-Q Treatments Start: 12/29/24 08:15 Freq: Status: Active Protocol: Document 01/05/25 14:32 SAK (Rec: 01/05/25 15:58 [facility] Laptop) Lymphedema Treatment Manual Lymphatic Drainage Location for bilateral LE lipolymphedema Duration 35 Lymphedema Wrapping Other Continues to wear trial Bioflect until receives her own garments Sequential Lymphedema Exercises Comments Pt. ex indep HEP except continue manual abdominal techniques and deep breathing techniques. Compression Garment Assessment Compression Garment Good fit xl Bioflect trial garment Assessment Details Patient Education Compression Garments discussion layering compression Self Manual reviewed technique Lymphatic Drainage Sequential pt ex HEP indep Lymphedema Exercises PT-OP-T Assessment and Plan Start: 12/29/24 08:15 Freq: Status: Active Protocol: Document 01/05/25 14:32 [facility] (Rec: 01/05/25 14:59 [facility] Laptop) Physical Therapy Assessment Goals Three Impairment low activity tolerance due to knee pain Retirement Assistant Goal (LTG) Patient to report improvement in activity tolerance to include able to walk at least 1 mile without an increase in knee pain LTG Duration 03/31/25 Two Impairment lymphedema life impact scale score 51% Short Term Goal (STG Decrease Lymphedema Life Impact Scale to no greater ) than 35% as measure of improved activity tolerance and quality of life. STG Duration 02/13/25 Retirement Assistant Goal (LTG) Decrease Lymphedema Life Impact Scale to no greater than 25% as measure of improved activity tolerance and quality of life. LTG Duration 03/31/25 One Impairment Lipo-lymphedema john paul LE's and UE's Short Term Goal (STG Patient will be instructed in all aspects of lipo- ) lymphedema self-care to include skin care, elevation, self-massage, self-bandaging/compression options, and lipo-lymphedema exercises. STG Duration 02/13/25 Residential Goal (LTG) Decrease patient?s lipo-lymphedema to a stable level ( no increase or decrease greater than 1 cm over the course of 1 week), patient to be independent with all aspects of self-care for lipo-lymphedema, and will obtain appropriate compression garments for lipo- lymphedema management in the home. LTG Duration 03/31/25 Assessment Summary Assessment Overall decreases in circumferential measurements and decreased pain, except when played pickleball without wearing compression. Has ordered a couple compression garments, currently using loaner. Trial Airos 6 pneumatic compression pump max 60 mm Hg with good tolerance 30 min each LE during MLD opposite side and patient education. Patient has not yet tried aquatic exercise. Recommended trial layer Bioflect with compression bandaging if richard especially for recovery from athletic activities if not during. Patient compliant to all aspects of lipolymphedema self care except as above going without compression. Encouraged trial aquatic exercise. Physical Therapy Plan Frequency and Duration Frequency of 20 Treatment Duration of 12 treatment (weeks) Plan of Care Start 12/29/24 Date Plan of Care End 03/31/25 Date Therapeutic Interventions Therapeutic Home Exercise Program,Lymphedema Management,Manual Interventions Therapy,Patient/Caregiver Education,Self-Care/Home Management,Soft Tissue Mobilization,Taping,Therapeutic Activities,Therapeutic Exercises Modalities Vasopneumatic Devices Next Visit Focus/Plan Next Note Type Treatment Note Next Visit Plan Continue Complete Decongestive therapy.
--- NOTE | 2025-01-08 17:42 | PT.OTN ---
Current Diagnoses Lymphedema, not elsewhere classified (01/08/25) Physical Therapy Treatment Note PT-OP-A Visit Information Start: 12/29/24 08:15 Freq: Status: Active Protocol: Document 01/08/25 14:35 SAK (Rec: 01/08/25 14:58 [facility] Laptop) Out-Patient Physical Therapy Visit Information Visit Information Visit Type Treatment Note Visit Start Time 14:36 Visit Stop Time 16:01 Visit Number 4 PT-OP-B Current Condition Start: 12/29/24 08:15 Freq: Status: Active Protocol: Document 01/08/25 14:35 SAK (Rec: 01/08/25 14:58 [facility] Laptop) Current Condition History of Current Condition Onset Date lifetime Current Complaints swelling bilateral lower extremies History of Current States has always had larger legs, got really bad with Condition menopause and on left leg worsened after knee surgery. Also upper arms significantly larger than lower arms. Bruises easily, has hypermobility of joints UE's and LE's. Feet and hands not affected with edema. Left knee surgery ACL and meniscal surgery 12 years ago, knee has caused her problems ever since. Feels whole area gets easily irritated. Was doing PT for knee last in July of this year. Goes to [email or web address] class. Has not worn any compression garments. Was diagnosed with lymphedema but feels she may also have lipedema. Has a vibration plate. Elevation doesn't help with edema. Worsens over the course of the day. Prior Treatments and none Tests PT-OP-C Subjective Start: 12/29/24 08:15 Freq: Status: Active Protocol: Document 01/08/25 14:35 [facility] (Rec: 01/08/25 14:58 [facility] Laptop) OP-PT Subjective Patient Comments Patient Comments Got one compression garment but was wrong size. Still no pain since started wearing compression and trial sequential pneumatic pump, feels swelling has decreased though feels puffy after exercise, especially just below knees a band of swollen tissue . Receptive to trial Flexitouch next week. Patient Reported Improving Progress PT-OP-G Mobility & Gait Start: 12/29/24 08:15 Freq: Status: Active Protocol: Document 12/29/24 14:34 SAK (Rec: 12/29/24 17:01 [facility] Laptop) OP Gait Assessment Gait Gait Assistance Independent Required: Assistive Devices Assistive Device None PT-OP-J Posture/Palpation/Skin Start: 12/29/24 08:15 Freq: Status: Active Protocol: Document 12/29/24 14:34 SAK (Rec: 12/29/24 17:01 SAK Laptop) Palpation Assessment Location john paul LE's Palpation Findings Edema,Tenderness Palpation Details multiple areas of nodularity throughout proximal LE's Skin Assessment Edema Assessment john paul LE's Edema Type Non-Pitting Edema Appearance Dimpled,Puffy Comments from ankles proximal including hips and buttocks Other Assessments Skin Assessment dimpling appearance Comments PT-OP-K Range of Motion Start: 12/29/24 08:15 Freq: Status: Active Protocol: Document 12/29/24 14:34 SAK (Rec: 12/29/24 17:01 SAK Laptop) Hip Goniometric Range of Motion Hip john paul Hip ROM WFL Yes Knee Goniometric Range of Motion Knee john paul Knee ROM WFL Yes Ankle and Foot Goniometric Range of Motion Ankle and Foot john paul Ankle/Foot ROM WFL Yes PT-OP-N Lymphedema Start: 12/29/24 08:15 Freq: Status: Active Protocol: Document 01/08/25 14:35 SAK (Rec: 01/08/25 14:58 SAK Laptop) Lymphedema Measurements Lower Extremity Circumference Measurements Right Affected MT Heads 22.4 cm Mid-foot 22.6 cm Medial Malleolus 22.4 cm 10 cm From Medial 32.5 cm Malleolus 20 cm From Medial 44.9 cm Malleolus 30 cm From Medial 44.2 cm Malleolus 40 cm From Medial 44.8 cm Malleolus 50 cm From Medial 52.4 cm Malleolus 60 cm From Medial 62.1 cm Malleolus 70 cm From Medial 73 cm Malleolus Knee Joint 44.8 cm Left Affected MT Heads 22.2 cm Mid-foot 21.6 cm Medial Malleolus 23.1 cm 10 cm From Medial 32 cm Malleolus 20 cm From Medial 40.5 cm Malleolus 30 cm From Medial 44.2 cm Malleolus 40 cm From Medial 46 cm Malleolus 50 cm From Medial 50.2 cm Malleolus 60 cm From Medial 58.2 cm Malleolus 70 cm From Medial 71.8 cm Malleolus Knee Joint 46 cm PT-OP-Q Treatments Start: 12/29/24 08:15 Freq: Status: Active Protocol: Document 01/08/25 14:35 SAK (Rec: 01/08/25 14:58 SAK Laptop) Lymphedema Treatment Manual Lymphatic Drainage Location for bilateral LE lipolymphedema Duration 55 Comments supine and prone Lymphedema Wrapping Other Continues to wear trial Bioflect until receives her own garments. Advised consider adding compression bandaging over garment especially for recovery after exercise. Also given information about CZsalis garments with higher level of compression. Sequential Lymphedema Exercises Comments Pt. ex indep HEP except continue manual abdominal techniques and deep breathing techniques. Compression Garment Assessment Compression Garment Good fit xl Bioflect trial garment. Given info Czsalis Assessment Details compression as option. Awaiting delivery of other garments. Patient Education Other pt shown educational video from [facility] on lipedema pathology and treatment. PT-OP-R Modalities Start: 12/29/24 08:15 Freq: Status: Active Protocol: Document 01/08/25 14:36 SAK (Rec: 01/08/25 17:42 SAK Laptop) Compression Pump Treatment Treatment Location john paul LE's Pressure Amount ( 60 mmHg) (mmHG) Inflation Time ( 30 Seconds) Deflation Time ( 10 Seconds) Treatment Tolerance Good Treatment Comments 15 min each leg today during pt. education PT-OP-T Assessment and Plan Start: 12/29/24 08:15 Freq: Status: Active Protocol: Document 01/08/25 14:35 SAK (Rec: 01/08/25 14:58 [facility] Laptop) Physical Therapy Assessment Goals Three Impairment low activity tolerance due to knee pain Counter Top Assembler Goal (LTG) Patient to report improvement in activity tolerance to include able to walk at least 1 mile without an increase in knee pain LTG Duration 03/31/25 Two Impairment lymphedema life impact scale score 51% Short Term Goal (STG Decrease Lymphedema Life Impact Scale to no greater ) than 35% as measure of improved activity tolerance and quality of life. STG Duration 02/13/25 Detention Goal (LTG) Decrease Lymphedema Life Impact Scale to no greater than 25% as measure of improved activity tolerance and quality of life. LTG Duration 03/31/25 One Impairment Lipo-lymphedema john paul LE's and UE's Short Term Goal (STG Patient will be instructed in all aspects of lipo- ) lymphedema self-care to include skin care, elevation, self-massage, self-bandaging/compression options, and lipo-lymphedema exercises. STG Duration 02/13/25 Detention Goal (LTG) Decrease patient?s lipo-lymphedema to a stable level ( no increase or decrease greater than 1 cm over the course of 1 week), patient to be independent with all aspects of self-care for lipo-lymphedema, and will obtain appropriate compression garments for lipo- lymphedema management in the home. LTG Duration 03/31/25 Assessment Summary Assessment Most circumferential measurements decreased today john paul LE's. Compliant to wearing compression and doing self massage. During use of sequential pneumatic pump had pt view educational video on lipedema for further education pathyology of discorder and treatment. She asked appropriate questions and demonstrated good understanding. Feel she would benefit from a sequential pneumatic pump for use LEs and trunk; will be doing trial Flexitouch 01/15/25. May consider use of pump for UE's in the future though that hasn't been focus of PT treatment so far for her lipolymphedema. Physical Therapy Plan Frequency and Duration Frequency of 20 Treatment Duration of 12 treatment (weeks) Plan of Care Start 12/29/24 Date Plan of Care End 03/31/25 Date Therapeutic Interventions Therapeutic Home Exercise Program,Lymphedema Management,Manual Interventions Therapy,Patient/Caregiver Education,Self-Care/Home Management,Soft Tissue Mobilization,Taping,Therapeutic Activities,Therapeutic Exercises Modalities Vasopneumatic Devices Next Visit Focus/Plan Next Note Type Treatment Note Next Visit Plan Continue Complete Decongestive therapy. Sequential pneumatic pump trial 01/15/25.
--- NOTE | 2025-01-29 13:01 | PT.OTN ---
Current Diagnoses Lymphedema, not elsewhere classified (01/29/25) Physical Therapy Treatment Note PT-OP-A Visit Information Start: 12/29/24 08:15 Freq: Status: Active Protocol: Document 01/29/25 07:24 AB (Rec: 01/29/25 08:01 AB [id number]) Out-Patient Physical Therapy Visit Information Visit Information Visit Type Treatment Note Visit Start Time 07:33 Visit Stop Time 08:53 Visit Number 5 (PN due 02/14/2025) Number of ENDING MACHINE OPERATOR Visits 1 PT-OP-B Current Condition Start: 12/29/24 08:15 Freq: Status: Active Protocol: Document 01/15/25 16:00 SAK (Rec: 01/18/25 10:13 SAK Laptop) Current Condition History of Current Condition Onset Date lifetime Current Complaints swelling bilateral lower extremies, buttocks, lower trunk History of Current States has always had larger legs, hips, buttocks and Condition lower trunk, it got really bad with menopause and on left leg worsened after knee surgery. Also upper arms significantly larger than lower arms. Bruises easily, has hypermobility of joints UE's and LE's. Feet and hands not affected with edema. Left knee surgery ACL and meniscal surgery 12 years ago, knee has caused her problems ever since. Feels whole area gets easily irritated. Was doing PT for knee last in July of this year. Goes to [employer] class. Has not worn any compression garments. Was diagnosed with lymphedema but feels she may also have lipedema. Has a vibration plate. Elevation doesn't help with edema. Worsens over the course of the day. Prior Treatments and none Tests PT-OP-C Subjective Start: 12/29/24 08:15 Freq: Status: Active Protocol: Document 01/29/25 07:24 AB (Rec: 01/29/25 08:01 AB [id number]) OP-PT Subjective Patient Comments Patient Comments Patient reports the garmets are great, she is not in pain. Patient reports she still has knee pain post exercise. Patient reports playing pickle ball and [employer], but has not been walking. PT-OP-G Mobility & Gait Start: 12/29/24 08:15 Freq: Status: Active Protocol: Document 12/29/24 14:34 SAK (Rec: 12/29/24 17:01 SAK Laptop) OP Gait Assessment Gait Gait Assistance Independent Required: Assistive Devices Assistive Device None PT-OP-J Posture/Palpation/Skin Start: 12/29/24 08:15 Freq: Status: Active Protocol: Document 12/29/24 14:34 SAK (Rec: 12/29/24 17:01 SAK Laptop) Palpation Assessment Location john paul LE's Palpation Findings Edema,Tenderness Palpation Details multiple areas of nodularity throughout proximal LE's Skin Assessment Edema Assessment john paul LE's Edema Type Non-Pitting Edema Appearance Dimpled,Puffy Comments from ankles proximal including hips and buttocks Other Assessments Skin Assessment dimpling appearance Comments PT-OP-K Range of Motion Start: 12/29/24 08:15 Freq: Status: Active Protocol: Document 12/29/24 14:34 SAK (Rec: 12/29/24 17:01 SAK Laptop) Hip Goniometric Range of Motion Hip john paul Hip ROM WFL Yes Knee Goniometric Range of Motion Knee john paul Knee ROM WFL Yes Ankle and Foot Goniometric Range of Motion Ankle and Foot john paul Ankle/Foot ROM WFL Yes PT-OP-N Lymphedema Start: 12/29/24 08:15 Freq: Status: Active Protocol: Document 01/29/25 07:24 AB (Rec: 01/29/25 08:01 AB [id number]) Lymphedema Measurements Lower Extremity Circumference Measurements Right Affected MT Heads 22.2 cm Mid-foot 22.6 cm Medial Malleolus 23.1 cm 10 cm From Medial 34.2 cm Malleolus 20 cm From Medial 42.9 cm Malleolus 30 cm From Medial 45.6 cm Malleolus 40 cm From Medial 45.8 cm Malleolus 50 cm From Medial 54.6 cm Malleolus 60 cm From Medial 65.6 cm Malleolus 70 cm From Medial 75 cm Malleolus 80 cm From Medial 44.8 cm Malleolus Left Affected MT Heads 22.4 cm Mid-foot 22.5 cm Medial Malleolus 22.7 cm 10 cm From Medial 34.1 cm Malleolus 20 cm From Medial 42.5 cm Malleolus 30 cm From Medial 45.6 cm Malleolus 40 cm From Medial 48.3 cm Malleolus 50 cm From Medial 54.2 cm Malleolus 60 cm From Medial 64.3 cm Malleolus 70 cm From Medial 77.2 cm Malleolus Knee Joint 44.5 cm PT-OP-Q Treatments Start: 12/29/24 08:15 Freq: Status: Active Protocol: Document 01/29/25 07:24 AB (Rec: 01/29/25 08:01 AB [id number]) Therapeutic Exercises Supine Exercises breathing from diaphgragm Supine Exercise Name Pt ed rationale of for Lymphedema and self tactile cues ankle pumps, quad sets Reps/Minutes X ~15 each each LE Sitting Exercises seated hip abd with band Sitting Exercise for glute med activation daily and as able prior to Name walking and pickleball Side bilateral Resistance level 4 band Reps/Minutes one min X 1 Comments verbal cues HEP Lymphedema Treatment Manual Lymphatic Drainage Location for bilateral LE lipolymphedema Duration 70 Comments ant post, drains [address] 360 deg LE's Lymphedema Wrapping Other Continues to wear trial Bioflect until receives her own garments. Again Advised consider adding compression bandaging over garment again and to exercise with garmets in place Sequential Lymphedema Exercises Comments see ther ex PT-OP-R Modalities Start: 12/29/24 08:15 Freq: Status: Active Protocol: Document 01/15/25 16:00 SAK (Rec: 01/18/25 10:13 SAK Laptop) Compression Pump Treatment Treatment Location john paul LE's Treatment Comments underwent compression trial with [employer] today PT-OP-T Assessment and Plan Start: 12/29/24 08:15 Freq: Status: Active Protocol: Document 01/29/25 07:24 AB (Rec: 01/29/25 08:01 AB [id number]) Physical Therapy Assessment Goals Three Impairment low activity tolerance due to knee pain Residential Goal (LTG) Patient to report improvement in activity tolerance to include able to walk at least 1 mile without an increase in knee pain LTG Duration 03/31/25 Two Impairment lymphedema life impact scale score 51% Short Term Goal (STG Decrease Lymphedema Life Impact Scale to no greater ) than 35% as measure of improved activity tolerance and quality of life. STG Duration 02/13/25 Education Department Chair Goal (LTG) Decrease Lymphedema Life Impact Scale to no greater than 25% as measure of improved activity tolerance and quality of life. LTG Duration 03/31/25 One Impairment Lipo-lymphedema john paul LE's and UE's, buttocks, and lower trunk Short Term Goal (STG Patient will be instructed in all aspects of lipo- ) lymphedema self-care to include skin care, elevation, self-massage, self-bandaging/compression options, and lipo-lymphedema exercises. STG Duration 02/13/25 Education Department Chair Goal (LTG) Decrease patient?s lipo-lymphedema to a stable level ( no increase or decrease greater than 1 cm over the course of 1 week), patient to be independent with all aspects of self-care for lipo-lymphedema, and will obtain appropriate compression garments for lipo- lymphedema management in the home. LTG Duration 03/31/25 Assessment Summary Assessment Increased measures for all but knee L LE and more increased than decreased and same R LE. Patient does report having less knee pain with use of a compression pump, commenting some work better for pain than others. Physical Therapy Plan Frequency and Duration Frequency of 20 Treatment Duration of 12 treatment (weeks) Plan of Care Start 12/29/24 Date Plan of Care End 03/31/25 Date Next Visit Focus/Plan Next Note Type Treatment Note Next Visit Plan Continue Complete Decongestive therapy. Request pneumatic sequential pump to assist with lipolymphedema care in the home.
== END 2025-04-07 13:23 | disposition home or self-care (01) ==
LOC: PHYS 07:30
PROVIDERS: Family Provider Family Medicine; PCP Family Medicine; Referring Provider Family Medicine; Visit Provider Family Medicine
DX: I89.0 Lymphedema, not elsewhere classified (principal)
CPT/HCPCS: 29581; 97140; 97162; 97535

== ENCOUNTER 2025-03-17 16:15 | Outpatient (RCR) | payer OTHER, SELFPAY ==
--- NOTE | 2025-02-13 18:00 | PT.OPPOC ---
Physical, Occupational & Speech Therapy At Current Diagnoses Unilateral primary osteoarthritis, left knee (02/19/25) Other specified disorders of muscle (02/19/25) Iliotibial band syndrome, left leg (02/19/25) Other specified postprocedural states (02/19/25) Visit Care Team Role Provider Type Rona Rosario MD Family Provider Non-Staff Primary Care Provider Specialty: Family Practice Address: [address], [place], [address] Email: Jordan Camacho MD Attending Provider Non-Staff Referring Provider Specialty: Orthopedic Surgery Address: [address] [place] [address], [place], [address] Email: Plan Of Care PT-OP-A Visit Information Start: 02/13/25 08:26 Freq: Status: Active Protocol: Document 02/13/25 08:27 TRAVEL SPECIALIST (Rec: 02/13/25 09:09 TRAVEL SPECIALIST Laptop) Out-Patient Physical Therapy Visit Information Visit Information Visit Type Initial Evaluation Visit Start Time 08:20 Visit Stop Time 09:08 Visit Number 1 Number of SUMMER SCHOOL COORDINATOR Visits 0 Evaluation Information Evaluation Date 02/13/25 PT-OP-B Current Condition Start: 02/13/25 08:26 Freq: Status: Active Protocol: Document 02/13/25 08:27 TRAVEL SPECIALIST (Rec: 02/13/25 09:09 TRAVEL SPECIALIST Laptop) Current Condition History of Current Condition Current Complaints L knee pain, R hip pain History of Current Pt reports she just finished lymphedema therapy Condition treatment with Caitlin which resolved a lot of her initial pain in L knee. Pt reports her goals are to be more active and is currently limited by pain. Pt reports she has just started getting active again and therefore has a lot of weakness in both legs but feels a muscle imbalance. She plays pickle ball and goes to [employer] and feels like something isn't firing correctly and has a weak core. She originally had L knee pain but significantly reduced after lymphedema treatment and wearing compression socks but currently feels a lot of pain to R hip-back of glute, front of hip, and down side of leg. Had pulse EMS to R hip which significantly reduced bursitis. Prior Treatments and H/o B lymphedema and lipoedema Tests Treatment Goals Patient/Caregiver Get strength in glutes, strengthening knees, and to Goals protect her joints. PT-OP-C Subjective Start: 02/13/25 08:26 Freq: Status: Active Protocol: Document 02/13/25 08:27 TRAVEL SPECIALIST (Rec: 02/19/25 20:41 TRAVEL SPECIALIST Laptop) Patient Questionnaires Lower Extremity Functional Scale LEFS Score 52/80 LEFS Impairment 20 to 39% Impaired (Score 48-62) PT-OP-D Balance Start: 02/13/25 08:26 Freq: Status: Active Protocol: Document 02/13/25 08:27 TRAVEL SPECIALIST (Rec: 02/13/25 09:09 TRAVEL SPECIALIST Laptop) Balance Tests Single Limb Standing Single Limb- Right 59s with progressive trendelenburg, minimal sway, limited by fatigue Single Limb- Left 60s without trendelenburg or sway PT-OP-F Manual Assessment Start: 02/13/25 08:26 Freq: Status: Active Protocol: Document 02/13/25 08:27 TRAVEL SPECIALIST (Rec: 02/13/25 09:09 TRAVEL SPECIALIST Laptop) Manual Assessments Other Manual Assessments Other Manual TTP and decreased tissue mobility to R glute med, Assessments piriformis, TFL, and ITB. TTP around R femoral head PT-OP-M Strength Start: 02/13/25 08:26 Freq: Status: Active Protocol: Document 02/13/25 08:27 TRAVEL SPECIALIST (Rec: 02/13/25 09:09 TRAVEL SPECIALIST Laptop) Hip Strength Hip Manual Muscle Testing L Flexion (L2) 4 Good Extension (S1) 4- Good- Abduction 4+ Good+ Comments Prone PROM: IR 65 degrees, ER 40 degrees until hip lifts Heel to butt: 6.5 R Flexion (L2) 4+ Good+ Extension (S1) 4 Good Abduction 4 Good Comments pain with active and resisted hip abd Prone PROM: IR 50 degrees, ER 66 degrees until hip lifts Heel to butt: 2.5 Knee Strength Knee Manual Muscle Testing L Flexion (S2) 4+ Good+ Extension (L3) 4 Good R Flexion (S2) 5 Normal Extension (L3) 4+ Good+ PT-OP-Q Treatments Start: 02/13/25 08:26 Freq: Status: Active Protocol: Document 02/13/25 08:27 TRAVEL SPECIALIST (Rec: 02/19/25 20:41 TRAVEL SPECIALIST Laptop) Therapeutic Exercises Supine Exercises Piriformis stretch Supine Exercise Name figure 4 Side bilateral Reps/Minutes 60s each Comments Added to HEP with HO Standing Exercises Quad stretch Standing Exercise attempted multiple versions, standing foot prop on Name chair works best Side bilateral Equipment Used chair Reps/Minutes 60s each Comments Added to HEP with HO PT-OP-T Assessment and Plan Start: 02/13/25 08:26 Freq: Status: Active Protocol: Document 02/13/25 08:27 TRAVEL SPECIALIST (Rec: 02/13/25 09:09 TRAVEL SPECIALIST Laptop) Physical Therapy Assessment Rehab Potential Rehabilitation Excellent Potential Evaluation Complexity Number of Personal 3 or More Factors/ Comorbidities Number of Body 1-2 Systems Impaired Clinical Stable Presentation at Evaluation Impairments Impairments Activity Tolerance,Functional Activities,Functional Mobility,Pain,ROM,Soft Tissue Mobility,Strength Goals 4 Impairment LEFS Impairment On eval: 52/80 Commercial Door Installer Goal (LTG) Pt will score at least 75/80 on LEFS in order to improve functional mobility. LTG Duration 05/08/25 3 Impairment Pickleball Impairment pain in R hip and knees while playing pickleball Commercial Door Installer Goal (LTG) Pt will report playing 2 games of pickleball 0/10 pain for return to sport and injury prevention. LTG Duration 05/08/25 2 Impairment Squats Impairment pain in knees with squats Commercial Door Installer Goal (LTG) Pt will demonstrate 10x3 squats from knees at 90 degree angle without cueing needed for form and without pain in order to improve function. LTG Duration 05/08/25 1 Impairment HEP Impairment Lack of HEP Short Term Goal (STG Pt will report performance of HEP 5 days/wk for 3 ) consecutive weeks in order to demonstrate compliance to be able to progress to LTGs. STG Duration 03/27/25 Assessment Summary Assessment Pt presents with L knee pain and R hip pain. Pt has history of lymphedema and has received treatment for with reduction of pain and lipedema which is newly diagnosed. Pt presents with weakness to BLE weakness specifically to L hip flex and ext and knee extensors and R hip ext and abductors, decreased hip flexibility specifically to L quad and ERs and R IRs, and inflamed and decreased tissue mobility to R glute med, piriformis, TFL, and ITB which has limited her newly active lifestyle in [employer] and pickleball. Pt will highly benefit from skilled PT intervention to address deficits and improve function. Physical Therapy Plan Frequency and Duration Frequency of 2x/Week Treatment Duration of 12 treatment (weeks) Plan of Care Start 02/13/25 Date Plan of Care End 05/08/25 Date Therapeutic Interventions Therapeutic Home Exercise Program,Joint Mobilizations,Manual Interventions Therapy,Neuromuscular Re-education,Patient/Caregiver Education,Soft Tissue Mobilization,Taping,Therapeutic Activities,Therapeutic Exercises Modalities Cold Pack/Ice Massage,Hot Packs,Iontophoresis Next Visit Focus/Plan Next Note Type Treatment Note Plan of Care Dates Plan of Care Start Date 02/13/25 Plan of Care End Date 05/08/25 Electronically Signed by: Sandy Chapin, PT 02/19/252041 If you are in agreement with this Plan of Care, please return a signed and dated copy. I have reviewed this Plan of Care and certify that the skilled therapy services above are required to meet the patient?s needs. Physician Signature Date Printed Name and Credentials Clinical Instructor Signature Printed Name and Credentials
--- NOTE | 2025-02-19 21:16 | PT.OTN ---
Current Diagnoses Unilateral primary osteoarthritis, left knee (02/19/25) Other specified disorders of muscle (02/19/25) Iliotibial band syndrome, left leg (02/19/25) Other specified postprocedural states (02/19/25) Physical Therapy Treatment Note PT OP: Lower Back/Lower Extremity Start: 02/19/25 21:01 Freq: Status: Active Protocol: Document 02/19/25 15:22 ORTHOPEDIC SHOE FITTER (Rec: 02/19/25 21:16 ORTHOPEDIC SHOE FITTER Laptop) Out-Patient Physical Therapy Visit Information Visit Information Visit Type Treatment Note Visit Start Time 15:22 Visit Stop Time 16:06 Visit Number 2 Number of AIRCRAFT GENERAL REPAIR MECHANIC Visits 0 Progress Note Due 03/15/25 OP-PT Subjective Patient Comments Patient Comments Pt reports she has been doing her HEP stretches over the past week without issues. Over the weekend she walked a lot [place] [employer] and this flared up her pain, played pickleball the next day and this flared it up even more but currently at 0/10. Has an appointment tomorrow for BLE compression to reduce lymphedema and this usually decreases pain. Cardio Equipment Recumbent Elliptical (NuStep) Duration (Minutes) 5 Resistance L2, pain in knees at L5 Seat Position 5 Other BLEs and BUEs for warm up Therapeutic Exercises Supine Exercises PPT Supine Exercise Name 1. PPT 2. PPT hold 2 breaths 3. PPT hold 10s (Added to HEP with HO) Reps/Minutes x10 each Comments able to maintain PPT through advancements with min difficulty Bridges Side bilateral Reps/Minutes x10 Comments without difficulty, not added to HEP Prone Exercises Hip Ext Side bilateral Reps/Minutes 10x2 each Comments Added to HEP with HO Sidelying Exercises Clamshells Sidelying Exercise Added to HEP with HO Name Side bilateral Reps/Minutes 10x2 Comments VC to prevent hip roll back, pain to R quad improved after STM Standing Exercises Squats Standing Exercise Mini squats, Added to HEP with HO Name Reps/Minutes x10 Comments VC for form: WS through heels to prevent knees over toes, without knee pain Manual Therapy Treatment Consent Patient gave verbal Yes consent for manual treatment Soft Tissue Mobilization Upper Leg Body Location R ant thigh Mobilization Type Myofascial Release Intensity/Depth Superficial Body Position Sidelying Comments pain at multiple points throughout quad, possibly d/t lipedema, dispersed and decreased intensity after light /mod MFR, improved pain with clamshell Physical Therapy Assessment Goals 4 Impairment LEFS Impairment On eval: 52/80 Residential Goal (LTG) Pt will score at least 75/80 on LEFS in order to improve functional mobility. LTG Duration 05/08/25 3 Impairment Pickleball Impairment pain in R hip and knees while playing pickleball Street Light Cleaner Goal (LTG) Pt will report playing 2 games of pickleball 0/10 pain for return to sport and injury prevention. LTG Duration 05/08/25 2 Impairment Squats Impairment pain in knees with squats Residential Goal (LTG) Pt will demonstrate 10x3 squats from knees at 90 degree angle without cueing needed for form and without pain in order to improve function. LTG Duration 05/08/25 1 Impairment HEP Impairment Lack of HEP Short Term Goal (STG Pt will report performance of HEP 5 days/wk for 3 ) consecutive weeks in order to demonstrate compliance to be able to progress to LTGs. STG Duration 03/27/25 Assessment Summary Assessment Pt tolerated core and hip exercises well with HEP HO given, pain to R quad with R clamshell but improved after myofascial release to R quad. Physical Therapy Plan Frequency and Duration Frequency of 2x/Week Treatment Duration of 12 treatment (weeks) Plan of Care Start 02/13/25 Date Plan of Care End 05/08/25 Date Next Visit Focus/Plan Next Note Type Treatment Note Next Visit Plan MFR to B hips/quads prior to exercises, light STM to R ITB, progress TA exercises
--- NOTE | 2025-02-26 19:15 | PT.OTN ---
Current Diagnoses Unilateral primary osteoarthritis, left knee (02/26/25) Other specified disorders of muscle (02/26/25) Iliotibial band syndrome, left leg (02/26/25) Other specified postprocedural states (02/26/25) Physical Therapy Treatment Note PT OP: Lower Back/Lower Extremity Start: 02/19/25 21:01 Freq: Status: Active Protocol: Document 02/26/25 15:23 SEISMOMETER OPERATOR (Rec: 02/26/25 16:18 SEISMOMETER OPERATOR Laptop) Out-Patient Physical Therapy Visit Information Visit Information Visit Type Treatment Note Visit Start Time 15:21 Visit Stop Time 16:03 Visit Number 3 Number of EMERGENCY ROOM ORDERLY Visits 0 Progress Note Due 03/15/25 OP-PT Subjective Patient Comments Patient Comments Pt reports her RLE had less pin pointed pain and less intense and more dispersed pain during exercises since MFR last session. Pt played pickleball yesterday and still had pain to RLE. Therapeutic Exercises Supine Exercises HF stretch Supine Exercise Name lianne stretch off end of bed Side bilateral Reps/Minutes 60s each leg Comments manual overpressure to R knee flex and hip ext for stretch at prox hip SLR Supine Exercise Name 1. SLR neutral 2. SLR ER Side bilateral Reps/Minutes 10x2 R, x10 L PPT Supine Exercise Name 1. hold 10s with breathing 2. KFO (Added to HEP) Reps/Minutes x10 each leg Comments 1. able to perform without difficulty or cueing 2. more difficulty L vs R Sidelying Exercises Clamshells Side right Reps/Minutes x10 Comments less pain just diffuse tight vs last session, improved after STM Standing Exercises Squats Standing Exercise Mini squats, HEP review Name Reps/Minutes x10 Comments pain in B knees, no pain after posture cues and TA activation Manual Therapy Treatment Consent Patient gave verbal Yes consent for manual treatment Soft Tissue Mobilization Upper Leg Body Location R quad, ITB, glute med, around femoral head Mobilization Type Myofascial Release Intensity/Depth Superficial Body Position Sidelying Comments prior to exercises for improved pain MFR to quad, ITB, glute med, around femoral head STM to ITB Physical Therapy Assessment Goals 4 Impairment LEFS Impairment On eval: 52/80 Assembler Motor Vehicle Goal (LTG) Pt will score at least 75/80 on LEFS in order to improve functional mobility. LTG Duration 05/08/25 3 Impairment Pickleball Impairment pain in R hip and knees while playing pickleball Fdc Goal (LTG) Pt will report playing 2 games of pickleball 0/10 pain for return to sport and injury prevention. LTG Duration 05/08/25 2 Impairment Squats Impairment pain in knees with squats Assembler Motor Vehicle Goal (LTG) Pt will demonstrate 10x3 squats from knees at 90 degree angle without cueing needed for form and without pain in order to improve function. LTG Duration 05/08/25 1 Impairment HEP Impairment Lack of HEP Short Term Goal (STG Pt will report performance of HEP 5 days/wk for 3 ) consecutive weeks in order to demonstrate compliance to be able to progress to LTGs. STG Duration 03/27/25 Assessment Summary Assessment Pt with improved pain during exercises after MFR to RLE . She demonstrates improved TA activation and advanced HEP to knee fall outs 1LE at a time. Reviewed squat form causing B knee pain but resolved pain with cueing for BUEs out in front of her, increased WS through heels, and TA activation. Physical Therapy Plan Frequency and Duration Frequency of 2x/Week Treatment Duration of 12 treatment (weeks) Plan of Care Start 02/13/25 Date Plan of Care End 05/08/25 Date Therapeutic Interventions Therapeutic Home Exercise Program,Joint Mobilizations,Manual Interventions Therapy,Neuromuscular Re-education,Patient/Caregiver Education,Soft Tissue Mobilization,Taping,Therapeutic Activities,Therapeutic Exercises Modalities Cold Pack/Ice Massage,Hot Packs,Iontophoresis Next Visit Focus/Plan Next Note Type Treatment Note Next Visit Plan MFR to RLE prior to exercises, shuttle recovery, review and progress TA exercises, review R HF stretch
--- NOTE | 2025-03-03 17:19 | PT.OTN ---
Current Diagnoses Unilateral primary osteoarthritis, left knee (03/03/25) Other specified disorders of muscle (03/03/25) Iliotibial band syndrome, left leg (03/03/25) Other specified postprocedural states (03/03/25) Physical Therapy Treatment Note PT OP: Lower Back/Lower Extremity Start: 02/19/25 21:01 Freq: Status: Active Protocol: Document 03/03/25 16:34 SHEET TAILER (Rec: 03/03/25 17:19 SHEET TAILER Laptop) Out-Patient Physical Therapy Visit Information Visit Information Visit Type Treatment Note Visit Start Time 16:20 Visit Stop Time 17:05 Visit Number 4 Number of SENIOR CARE SPECIALIST Visits 0 Progress Note Due 03/15/25 OP-PT Subjective Patient Comments Patient Comments Pt reports improved pain to R quad and now slight pain/ tightness to R lower leg and lateral knee 1-08/25. Played pickleball since last session with improved pain to RLE. Therapeutic Exercises Standing Exercises Step ups/downs Standing Exercise step ups 6 step, step downs 4 step Name Side right Reps/Minutes 10x2 Comments min pain to R ant knee, resolved with cue for glute squeeze HS stretch Side right Reps/Minutes 1 min Comments Added to HEP with HO Soleus stretch Side right Reps/Minutes 1 min Comments Added to HEP with HO Gastroc stretch Side right Reps/Minutes 1 min Comments Added to HEP with HO ITB stretch Side right Reps/Minutes 30s x2 Comments Added to HEP with HO Manual Therapy Treatment Consent Patient gave verbal Yes consent for manual treatment Soft Tissue Mobilization Lower Leg Body Location R ant tib and gastroc/soleus Mobilization Type Myofascial Release Intensity/Depth Superficial Body Position supine, sidelying Comments prior to exercises Upper Leg Body Location R ITB Intensity/Depth Moderate Body Position Sidelying Comments manual stretching prior to standing active stretch Physical Therapy Assessment Goals 4 Impairment LEFS Impairment On eval: 52/80 Snf Goal (LTG) Pt will score at least 75/80 on LEFS in order to improve functional mobility. LTG Duration 05/08/25 3 Impairment Pickleball Impairment pain in R hip and knees while playing pickleball Snf Goal (LTG) Pt will report playing 2 games of pickleball 0/10 pain for return to sport and injury prevention. LTG Duration 05/08/25 2 Impairment Squats Impairment pain in knees with squats Snf Goal (LTG) Pt will demonstrate 10x3 squats from knees at 90 degree angle without cueing needed for form and without pain in order to improve function. LTG Duration 05/08/25 1 Impairment HEP Impairment Lack of HEP Short Term Goal (STG Pt will report performance of HEP 5 days/wk for 3 ) consecutive weeks in order to demonstrate compliance to be able to progress to LTGs. STG Duration 03/27/25 Assessment Summary Assessment Pt with improved pain to R lower leg and insertion of ITB from 2 to 0/10 after MFR and active stretching, however reports increase of pain to L knee from 0 to 2/ 10 after step ups/downs at end of session. RLE stretches added to HEP with HO given. Physical Therapy Plan Frequency and Duration Frequency of 2x/Week Treatment Duration of 12 treatment (weeks) Plan of Care Start 02/13/25 Date Plan of Care End 05/08/25 Date Next Visit Focus/Plan Next Note Type Treatment Note Next Visit Plan MFR to RLE prior to exercises, shuttle recovery, review and progress TA exercises, review R HF stretch
--- NOTE | 2025-03-10 18:51 | PT.OTN ---
Current Diagnoses Unilateral primary osteoarthritis, left knee (03/10/25) Other specified disorders of muscle (03/10/25) Iliotibial band syndrome, left leg (03/10/25) Other specified postprocedural states (03/10/25) Physical Therapy Treatment Note PT OP: Lower Back/Lower Extremity Start: 02/19/25 21:01 Freq: Status: Active Protocol: Document 03/10/25 16:23 SOX ANALYST (Rec: 03/10/25 17:06 SOX ANALYST Laptop) Out-Patient Physical Therapy Visit Information Visit Information Visit Type Progress Note Visit Start Time 16:22 Visit Stop Time 17:05 Visit Number 5 Number of BEAN VINER Visits 0 Progress Note Due 04/09/25 OP-PT Subjective Patient Comments Patient Comments Pt reports R thigh pain has significantly improved, only feels it slightly while doing clamshells. Pain has moved from side of hip to front of hip, has no more pain while sleeping. Pain to lower R leg is resolved. Current pain 0/10. Patient Questionnaires Lower Extremity Functional Scale LEFS Score 69/50 Cardio Equipment Recumbent Bicycle Duration (Minutes) 3 Resistance 10 Other VC for full ROM, no pain Therapeutic Exercises Standing Exercises HF stretch Standing Exercise doorway stretch Name Side bilateral Reps/Minutes 1 min each Comments VC for PPT for increased HF stretch, added to HEP w/o HO Squats Standing Exercise squats to 45 degrees 10x2, to 69 degrees x10 Name Reps/Minutes 10x3 Comments VC x1 for post WS with improved tight feeling in B knees Manual Therapy Treatment Consent Patient gave verbal Yes consent for manual treatment Soft Tissue Mobilization HF tendon Body Location R HF tendon Mobilization Type Cross-Friction,Sustained Pressure Intensity/Depth Deep Body Position Hooklying Comments TFM and sustained pressure to tendon with heel slides x10 Upper Leg Body Location R ant and lateral quad Mobilization Type Myofascial Release Intensity/Depth Superficial Body Position Hooklying Comments tenderness and tight fascia throughout R quad, improved with MFR Physical Therapy Assessment Goals 4 Impairment LEFS Impairment On eval: 52/80 Cable Tool Operator Goal (LTG) Pt will score at least 75/80 on LEFS in order to improve functional mobility. 03/10: Progressing, 69/80 LTG Duration 05/08/25 3 Impairment Pickleball Impairment pain in R hip and knees while playing pickleball Cable Tool Operator Goal (LTG) Pt will report playing 2 games of pickleball 0/10 pain for return to sport and injury prevention. 03/10: Progressing, played one game last week with improved pain to R hip but still slight pain to R lateral knee. Has not played this week. LTG Duration 05/08/25 2 Impairment Squats Impairment pain in knees with squats Cable Tool Operator Goal (LTG) Pt will demonstrate 10x3 squats from knees at 90 degree angle without cueing needed for form and without pain in order to improve function. 03/10: Progressing, VC x1 on first set for slight more post WS but performed x3 sets with 0 pain, first 2 sets to 45 degrees, last set 69 degrees. LTG Duration 05/08/25 1 Impairment HEP Impairment Lack of HEP Short Term Goal (STG Pt will report performance of HEP 5 days/wk for 3 ) consecutive weeks in order to demonstrate compliance to be able to progress to LTGs. 03/10: MET STG Duration 03/27/25 MET Assessment Summary Assessment Pt is progressing well towards all goals, meeting HEP goal as pt is very consistent with HEP at home, improved LEFs score from 52 on eval to 69/80 today with goal at 75/80, improved squats to perform 10x3 with x1 VC without B knee pain to 69 degrees out of goal of 90 degrees of knee flex, and without pain to R hip/ITB over the last week and only minimal pain reported during 1 game of pickleball. RLE fascial pain is improving but still restricted in areas and causing pain during fewer functional activities, will attempt cupping at next session with verbal recommendation from lymphedema specialist PT that it will not worsen pt's chronic lymphedema. Continue skilled PT to meet all goals. Physical Therapy Plan Frequency and Duration Frequency of 2x/Week Treatment Duration of 12 treatment (weeks) Plan of Care Start 02/13/25 Date Plan of Care End 05/08/25 Date Therapeutic Interventions Therapeutic Home Exercise Program,Joint Mobilizations,Manual Interventions Therapy,Neuromuscular Re-education,Patient/Caregiver Education,Soft Tissue Mobilization,Taping,Therapeutic Activities,Therapeutic Exercises Modalities Cold Pack/Ice Massage,Hot Packs,Iontophoresis Next Visit Focus/Plan Next Note Type Treatment Note Next Visit Plan cupping to RLE
--- NOTE | 2025-03-17 17:06 | PT.OTN ---
Current Diagnoses Unilateral primary osteoarthritis, left knee (03/17/25) Other specified disorders of muscle (03/17/25) Iliotibial band syndrome, left leg (03/17/25) Other specified postprocedural states (03/17/25) Physical Therapy Treatment Note PT OP: Lower Back/Lower Extremity Start: 02/19/25 21:01 Freq: Status: Active Protocol: Document 03/17/25 16:18 TRANSPLANT IMMUNOLOGIST (Rec: 03/17/25 17:06 TRANSPLANT IMMUNOLOGIST Laptop) Out-Patient Physical Therapy Visit Information Visit Information Visit Type Treatment Note Visit Start Time 16:18 Visit Stop Time 17:02 Visit Number 6 Number of DUSTLESS OPERATOR Visits 0 Progress Note Due 04/09/25 OP-PT Subjective Patient Comments Patient Comments Pt reports she traveled to [place] this weekend and slept on an air mattress with increased her pain in RLE but has since reduced to 07/25 to RLE. Gym Equipment Shuttle Recovery BLE Details 50#, 75#, 100# Resistance L3 TB around knees Shuttle Recovery Stable Platform Reps/Time x20 each weight, x10 at 100# Therapeutic Exercises Supine Exercises Hip Abd Supine Exercise Name floating leg Side right Reps/Minutes 10x2 SLR Supine Exercise Name 1. SLR neutral Side right Reps/Minutes 10x2 Sidelying Exercises Clamshells Side right Reps/Minutes x10 Standing Exercises Step ups/downs Standing Exercise step ups 6 step, step downs 4 step Name Side bilateral Reps/Minutes x10 Comments very min pain to R ant knee, resolved with cue for glute squeeze Squats Standing Exercise on BOSU ball Name Side bilateral Reps/Minutes x10 Comments light support from HR, decreased ROM to maintain balance and post WS Manual Therapy Treatment Consent Patient gave verbal Yes consent for manual treatment Soft Tissue Mobilization Lower Leg Body Location R ant tib and gastroc/soleus Mobilization Type Instrument Assisted,Myofascial Release Intensity/Depth Superficial Body Position Sidelying Comments cupping Upper Leg Body Location R ant and lateral quad, glute med, TFL, ITB Mobilization Type Instrument Assisted,Myofascial Release Intensity/Depth Superficial Body Position Sidelying Comments cupping Physical Therapy Assessment Goals 4 Impairment LEFS Impairment On eval: 52/80 [facility]cf Goal (LTG) Pt will score at least 75/80 on LEFS in order to improve functional mobility. 03/10: Progressing, 69/80 LTG Duration 05/08/25 3 Impairment Pickleball Impairment pain in R hip and knees while playing pickleball Disability Representative Goal (LTG) Pt will report playing 2 games of pickleball 0/10 pain for return to sport and injury prevention. 03/10: Progressing, played one game last week with improved pain to R hip but still slight pain to R lateral knee. Has not played this week. LTG Duration 05/08/25 2 Impairment Squats Impairment pain in knees with squats Chcf Goal (LTG) Pt will demonstrate 10x3 squats from knees at 90 degree angle without cueing needed for form and without pain in order to improve function. 03/10: Progressing, VC x1 on first set for slight more post WS but performed x3 sets with 0 pain, first 2 sets to 45 degrees, last set 69 degrees. LTG Duration 05/08/25 1 Impairment HEP Impairment Lack of HEP Short Term Goal (STG Pt will report performance of HEP 5 days/wk for 3 ) consecutive weeks in order to demonstrate compliance to be able to progress to LTGs. 03/10: MET STG Duration 03/27/25 MET Assessment Summary Assessment Pt tolerated cupping to entire RLE well with decreased pain during exercises after cupping. Physical Therapy Plan Frequency and Duration Frequency of 2x/Week Treatment Duration of 12 treatment (weeks) Plan of Care Start 02/13/25 Date Plan of Care End 05/08/25 Date Next Visit Focus/Plan Next Note Type Treatment Note Next Visit Plan trial small double then single leg jumps on shuttle recovery, balance training on BOSU and shuttle balance
--- NOTE | 2025-03-24 10:23 | PT-OP ANOTE ---
HVAC SHEET METAL INSTALLER HELPER called patient and left message to call back and add more appts, cancelled today's and next not til 05/04/25, need show progress so please call back and make appts with a HVAC SHEET METAL INSTALLER HELPER if can't get into see PT and will update appts.
--- NOTE | 2025-04-06 11:27 | PT.OPDS ---
Current Diagnoses Unilateral primary osteoarthritis, left knee (03/17/25) Other specified disorders of muscle (03/17/25) Iliotibial band syndrome, left leg (03/17/25) Other specified postprocedural states (03/17/25) Visit Care Team Role Provider Type Rona Rosario MD Family Provider Non-Staff Primary Care Provider Specialty: Family Practice Address: [address] [place] [address]. [facility], [place], [address] Email: Jordan Camacho MD Attending Provider Non-Staff Referring Provider Specialty: Orthopedic Surgery Address: [address] [place] [address], [id number] Email: Visit Number Visit Number 6 Discharge Summary PT OP: Lower Back/Lower Extremity Start: 02/19/25 21:01 Freq: Status: Active Protocol: Document 04/06/25 11:27 LIZA (Rec: 04/06/25 11:27 SAK Laptop) Out-Patient Physical Therapy Visit Information Visit Information Visit Type Discharge Summary Visit Note Pt. requests discharge from PT Physical Therapy Plan Discharge Physical Therapy Discharge Reasons Patient Request
== END 2025-04-24 09:25 | disposition home or self-care (01) ==
LOC: PHYS 16:15
PROVIDERS: Family Provider Family Medicine; PCP Family Medicine; Referring Provider Orthopaedic Surgery; Visit Provider Orthopaedic Surgery
DX: M76.32 Iliotibial band syndrome, left leg (principal); M62.89 Other specified disorders of muscle; M17.12 Unilateral primary osteoarthritis, left knee; Z98.890 Other specified postprocedural states
CPT/HCPCS: 97110; 97140; 97162

== ENCOUNTER → 2025-06-14 15:40 | Outpatient (CLI) | payer OTHER, SELFPAY ==
--- NOTE | 2025-06-14 15:42 | DI.MRI.S_ITS ---
PROCEDURE: MR KNEE LT WO CON INDICATIONS: Slatus post reconstruction of anterior cruciate li TECHNIQUE: Noncontrast sagittal PD fast spin echo and T2 fast spin echo with fat saturation, sagittal 3-D FLASH with fat saturation; coronal T1 spin echo and PD fast spin echo with fat saturation, and axial PD fast spin echo with fat saturation through the knee. COMPARISON: [facility], CR, XR KNEE ARTHRITIC SERIES BI, 03/14/2024, 16:07. FINDINGS: Image quality: Excellent. Anterior cruciate ligament: Postsurgical changes are seen from prior anterior cruciate ligament reconstruction. The femoral tunnel is located at the 2 o'clock position in the intercondylar notch with the orifice approximately 9 mm from the intersection of the posterior femoral cortex with Blumensaat's line. The tibial tunnel is located in the anterior to middle third of the central tibial plateau. The anterior cruciate ligament graft is intact. There is no significant arthrofibrosis. Posterior cruciate ligament: Intact. Medial collateral ligament: Intact. Lateral collateral ligament: Intact. Medial meniscus: Complex tearing of the posterior horn and body of the medial meniscus with a horizontal oblique component extending to the tibial articular surface and a small inferiorly displaced meniscal flap component at the meniscal body extending into the medial tibial gutter. Lateral meniscus: Diminutive in appearance of the posterior horn and body of the lateral meniscus may be related to prior partial meniscectomy versus chronic degenerative tearing and maceration. Medial and lateral tendons: The semimembranosus tendon insertions appear intact. Visualized portions of the pes anserinus tendons appear normal. The popliteus tendon is intact. Iliotibial band appears normal. Anterior structures: The quadriceps and patellar tendons appear intact. No patellar subluxation. No femoral trochlear dysplasia or ventral trochlear prominence. No edema in the infrapatellar fat pad. Bones: No bone marrow contusions or fractures. Medial femorotibial cartilage: Moderate partial-thickness cartilage irregularity throughout the weight-bearing portion of the medial femorotibial compartment with small marginal osteophytes. Lateral femorotibial cartilage: Focal full-thickness cartilage loss in the central weight-bearing portion of the lateral tibial plateau measuring approximately 5 x 5 mm. High-grade partial-thickness cartilage irregularity in the weight-bearing portion of the lateral femorotibial compartment with mild subchondral edema and small marginal osteophytes. Patellofemoral cartilage: High-grade versus full-thickness cartilage loss in the medial facet and median ridge of the patella as well as the trochlear groove and medial femoral trochlea with small marginal osteophytes. Soft tissues: Small joint effusion. Small medial popliteal cyst. The visualized musculature is normal in bulk. IMPRESSION: 1. Postsurgical changes from anterior cruciate ligament reconstruction with tunnel positioning as described in the body of the report. The anterior cruciate ligament graft is intact. 2. Diminutive appearance of the lateral meniscus likely related to prior partial meniscectomy and/or chronic degenerative tearing and maceration. 3. Complex tearing of the medial meniscus with a horizontal oblique component at the posterior horn and body and superimposed small meniscal flap component extending into the medial tibial gutter. 4. Small area of full-thickness cartilage loss in the femorotibial compartment with focal subchondral edema superimposed on background grade 3-4 chondromalacia. Grade 3-4 chondromalacia in the patellofemoral compartment. Grade 3 chondromalacia in the medial femorotibial compartment. 5. Small joint effusion. Small medial popliteal cyst. Approved by: Hugh Yung M.D. on 06/15/2025 at 9:26
== END ==
LOC: MRI 15:41
PROVIDERS: Family Provider Family Medicine; PCP Family Medicine; Referring Provider Orthopaedic Surgery; Visit Provider Orthopaedic Surgery
DX: S83.232A Complex tear of medial meniscus, current injury, left knee, initial encounter (principal); M17.12 Unilateral primary osteoarthritis, left knee; M25.462 Effusion, left knee; M23.92 Unspecified internal derangement of left knee; M22.42 Chondromalacia patellae, left knee; M71.22 Synovial cyst of popliteal space [Baker], left knee; Z98.890 Other specified postprocedural states
CPT/HCPCS: 73721